=== PATIENT | female | born 1990 | race Two or more races ===

== ENCOUNTER 2018-07-03 12:29 | Emergency (ER) | payer OTHER ==
[~2018-07-03] VITALS: Ht 162.6 cm; Wt 56.7 kg
[2018-07-03 13:08] VITALS: BP 130/60
[2018-07-03] MEDS ORDERED: LIDOCAINE 1% HCL (LOCAL ANESTH.) INJ 20ML MDV ONE (13:49)
[2018-07-03] MEDS ORDERED: cefTRIAXone SOD 1,000 MG VL IM ONE (14:00)
== END 2018-07-03 14:23 | disposition home or self-care (01) ==
LOC: ER 12:39
DX: J20.9 Acute bronchitis, unspecified (principal); H66.93 Otitis media, unspecified, bilateral; J02.9 Acute pharyngitis, unspecified; J45.909 Unspecified asthma, uncomplicated
CPT/HCPCS: 96372; 99283; J0696; J2001

== ENCOUNTER 2020-12-04 10:09 | Emergency (ER) | payer OTHER ==
[~2020-12-04] VITALS: Ht 162.6 cm; Wt 61.2 kg
[2020-12-04 10:11] VITALS: BP 153/88
== END 2020-12-04 12:24 | disposition home or self-care (01) ==
LOC: ER 10:09
DX: G43.909 Migraine, unspecified, not intractable, without status migrainosus (principal); J45.909 Unspecified asthma, uncomplicated
CPT/HCPCS: 70450

== ENCOUNTER 2020-12-30 10:39 | Emergency (ER) | payer OTHER ==
[~2020-12-30] VITALS: Ht 162.6 cm; Wt 79.4 kg
[2020-12-30 11:50] VITALS: BP 139/74
== END 2020-12-30 11:55 | disposition home or self-care (01) ==
LOC: ER 10:39
DX: M67.471 Ganglion, right ankle and foot (principal); Z88.1 Allergy status to other antibiotic agents

== ENCOUNTER 2021-01-10 09:09 | Emergency (ER) | payer OTHER ==
[~2021-01-10] VITALS: Ht 162.6 cm; Wt 56.7 kg
[2021-01-10 09:36] LABS: Basophils # (auto) 0 10 ^3/uL (0-0.2); Basophils % (auto) 0.3 % (0.0-2.0); Eosinophils # (auto) 0.2 10 ^3/uL (0-0.8); Eosinophils % (auto) 2.4 % (0.0-7.0); Hemoglobin 14.5 g/dL (12.2-16.2); Lymphocytes # (auto) 2.1 10 ^3/uL (0.4-5.4); Lymphocytes % (auto) 33.3 % (10.0-50.0); Mean Corpuscular Hemoglobin 30.4 pg (28.0-32.0); Mean Corpuscular Hgb Conc. 34.7 g/dL (32.0-36.0); Mean Corpuscular Volume 87.6 fL (80.0-100.0); Monocytes # (auto) 0.4 10 ^3/uL (0-1.3); Monocytes % (auto) 6.8 % (0.0-12.0); Neutrophils # (auto) 3.6 10 ^3/uL (1.6-8.6); Neutrophils % (auto) 57.2 % (37.0-80.0); Nucleated Red Blood Cells % 0.1 %; Red Blood Cells 4.79 10^6/uL (4.0-5.20); Red Cell Distribution Width 13.9 % (11.8-14.3); White Blood Cell 6.3 10^3/uL (4.4-10.8)
[2021-01-10 09:43] LABS: Urine Bacteria NONE SEEN /hpf (None Seen); Urine Blood 1+ /uL (Negative); Urine Mucus FEW (None Seen); Urine Specific Gravity 1.018 (1.001-1.035); Urine WBC <1 /hpf (0 - 5)
[2021-01-10 09:58] LABS: Albumin 3.5 g/dL (3.4-5.0); Calcium 8.7 mg/dL (8.5-10.1); Potassium 4.2 mmol/L (3.5-5.1)
[2021-01-10 10:03] LABS: BUN/Creatinine Ratio 19.4; Bilirubin, Total 0.5 mg/dL (0.2-1.0); Total Protein 7.5 g/dL (6.4-8.2)
[2021-01-10 15:19] VITALS: BP 119/75
== END 2021-01-10 15:34 | disposition home or self-care (01) ==
LOC: ER 09:09
DX: N93.9 Abnormal uterine and vaginal bleeding, unspecified (principal); J45.909 Unspecified asthma, uncomplicated; Z90.49 Acquired absence of other specified parts of digestive tract; Z90.89 Acquired absence of other organs; Z88.1 Allergy status to other antibiotic agents; Z88.8 Allergy status to other drugs, medicaments and biological substances
CPT/HCPCS: 36415; 76830; 76856; 80053; 81001; 81025; 85025

== ENCOUNTER 2021-03-24 11:32 | Emergency (ER) | payer OTHER ==
[~2021-03-24] VITALS: Ht 160 cm; Wt 63.0 kg
[2021-03-24 13:02] LABS: Basophils # (auto) 0.2 10 ^3/uL (0-0.2); Basophils % (auto) 2.7 % (0.0-2.0); Eosinophils # (auto) 0.1 10 ^3/uL (0-0.8); Eosinophils % (auto) 1.8 % (0.0-7.0); Hematocrit 43.6 % (36.0-46.0); Hemoglobin 14.7 g/dL (12.2-16.2); Lymphocytes # (auto) 1.6 10 ^3/uL (0.4-5.4); Mean Corpuscular Hgb Conc. 33.8 g/dL (32.0-36.0); Mean Corpuscular Volume 88.7 fL (80.0-100.0); Monocytes # (auto) 0.3 10 ^3/uL (0-1.3); Neutrophils # (auto) 4.9 10 ^3/uL (1.6-8.6); Neutrophils % (auto) 69.5 % (37.0-80.0); Nucleated Red Blood Cells % 0.3 %; Red Blood Cells 4.92 10^6/uL (4.0-5.20); Red Cell Distribution Width 13.7 % (11.8-14.3); White Blood Cell 7.1 10^3/uL (4.4-10.8)
[2021-03-24 13:33] LABS: Urine Bacteria NONE SEEN /hpf (None Seen); Urine Blood Negative /uL (Negative); Urine Mucus FEW (None Seen); Urine Specific Gravity 1.022 (1.001-1.035); Urine WBC 6 /hpf (0 - 5)
[2021-03-24 16:13] VITALS: BP 145/90
== END 2021-03-24 17:29 | disposition home or self-care (01) ==
LOC: ER 11:32
DX: O26.891 Other specified pregnancy related conditions, first trimester (principal); N30.00 Acute cystitis without hematuria; O99.511 Diseases of the respiratory system complicating pregnancy, first trimester; J45.909 Unspecified asthma, uncomplicated; Z90.49 Acquired absence of other specified parts of digestive tract; Z90.89 Acquired absence of other organs; Z88.1 Allergy status to other antibiotic agents; Z88.8 Allergy status to other drugs, medicaments and biological substances; Z3A.00 Weeks of gestation of pregnancy not specified
CPT/HCPCS: 36415; 81001; 84702; 85025

== ENCOUNTER 2021-03-26 09:26 | Emergency (ER) | payer OTHER ==
[~2021-03-26] VITALS: Ht 160 cm; Wt 63.5 kg
[2021-03-26 09:53] VITALS: BP 131/80
[2021-03-26 10:01] LABS: Urine Bacteria FEW /hpf (None Seen); Urine Blood Negative /uL (Negative); Urine Mucus FEW (None Seen); Urine Specific Gravity 1.031 (1.001-1.035); Urine WBC 27 /hpf (0 - 5)
== END 2021-03-26 11:33 | disposition home or self-care (01) ==
LOC: ER 09:26
DX: O23.11 Infections of bladder in pregnancy, first trimester (principal); N30.00 Acute cystitis without hematuria; O99.511 Diseases of the respiratory system complicating pregnancy, first trimester; J45.909 Unspecified asthma, uncomplicated; Z90.49 Acquired absence of other specified parts of digestive tract; Z90.89 Acquired absence of other organs; Z88.1 Allergy status to other antibiotic agents; Z88.8 Allergy status to other drugs, medicaments and biological substances; Z3A.00 Weeks of gestation of pregnancy not specified
CPT/HCPCS: 36415; 81001; 84702

== ENCOUNTER 2021-03-31 07:42 | Emergency (ER) | payer OTHER ==
[~2021-03-31] VITALS: Ht 162.6 cm; Wt 63.0 kg
[2021-03-31 08:15] LABS: Urine Bacteria FEW /hpf (None Seen); Urine Blood Negative /uL (Negative); Urine Mucus FEW (None Seen); Urine Specific Gravity 1.022 (1.001-1.035); Urine WBC 4 /hpf (0 - 5)
[2021-03-31 08:29] LABS: Basophils # (auto) 0 10 ^3/uL (0-0.2); Basophils % (auto) 0.4 % (0.0-2.0); Eosinophils # (auto) 0.1 10 ^3/uL (0-0.8); Eosinophils % (auto) 1.5 % (0.0-7.0); Hematocrit 42.7 % (36.0-46.0); Lymphocytes # (auto) 1.7 10 ^3/uL (0.4-5.4); Lymphocytes % (auto) 27.8 % (10.0-50.0); Mean Corpuscular Hemoglobin 30.9 pg (28.0-32.0); Mean Corpuscular Hgb Conc. 35.2 g/dL (32.0-36.0); Mean Corpuscular Volume 87.8 fL (80.0-100.0); Monocytes # (auto) 0.4 10 ^3/uL (0-1.3); Monocytes % (auto) 5.7 % (0.0-12.0); Neutrophils % (auto) 64.6 % (37.0-80.0); Nucleated Red Blood Cells % 0.1 %; Red Blood Cells 4.86 10^6/uL (4.0-5.20); Red Cell Distribution Width 13.6 % (11.8-14.3); White Blood Cell 6.2 10^3/uL (4.4-10.8)
[2021-03-31 08:32] LABS: Albumin 3.8 g/dL (3.4-5.0); Calcium 8.8 mg/dL (8.5-10.1); Potassium 4.6 mmol/L (3.5-5.1)
[2021-03-31 08:35] LABS: BUN/Creatinine Ratio 13.8; Bilirubin, Total 0.5 mg/dL (0.2-1.0); Total Protein 7.6 g/dL (6.4-8.2)
[2021-03-31 10:55] VITALS: BP 120/72
== END 2021-03-31 11:02 | disposition home or self-care (01) ==
LOC: ER 07:42
DX: O23.41 Unspecified infection of urinary tract in pregnancy, first trimester (principal); N39.0 Urinary tract infection, site not specified; Z88.1 Allergy status to other antibiotic agents; Z3A.01 Less than 8 weeks gestation of pregnancy
CPT/HCPCS: 36415; 76801; 76817; 80053; 81001; 84702; 85025

== ENCOUNTER 2022-09-30 10:13 | Observation (INO) | payer OTHER ==
[~2022-09-30] VITALS: Ht 165.1 cm; Wt 70.6 kg
[2022-09-30 10:27] VITALS: BP 142/67
[2022-09-30 10:55] LABS: Basophils # (auto) 0 10 ^3/uL (0-0.2); Basophils % (auto) 0.3 % (0.0-2.0); Eosinophils # (auto) 0.1 10 ^3/uL (0-0.8); Hematocrit 38.1 % (36.0-46.0); Hemoglobin 12.7 g/dL (12.2-16.2); Lymphocytes # (auto) 1.9 10 ^3/uL (0.4-5.4); Lymphocytes % (auto) 16.8 % (10.0-50.0); Mean Corpuscular Hemoglobin 30.2 pg (28.0-32.0); Mean Corpuscular Hgb Conc. 33.4 g/dL (32.0-36.0); Mean Corpuscular Volume 90.5 fL (80.0-100.0); Monocytes # (auto) 0.7 10 ^3/uL (0-1.3); Monocytes % (auto) 6.3 % (0.0-12.0); Neutrophils # (auto) 8.6 10 ^3/uL (1.6-8.6); Neutrophils % (auto) 75.6 % (37.0-80.0); Red Blood Cells 4.21 10^6/uL (4.0-5.20); Red Cell Distribution Width 14.3 % (11.8-14.3); White Blood Cell 11.4 10^3/uL (4.4-10.8)
[2022-09-30 11:14] LABS: Albumin 2.7 g/dL (3.4-5.0); Calcium 9.4 mg/dL (8.5-10.1); Potassium 4.2 mmol/L (3.5-5.1)
[2022-09-30 11:17] LABS: BUN/Creatinine Ratio 15.8 (10.0-20.0); Bilirubin, Total 0.3 mg/dL (0.2-1.0); Total Protein 6.3 g/dL (6.4-8.2)
[2022-09-30 11:22] LABS: Urine Bacteria NONE SEEN /hpf (None Seen); Urine Blood Negative /uL (Negative); Urine Mucus FEW (None Seen); Urine Specific Gravity 1.025 (1.001-1.035); Urine WBC 12 /hpf (0 - 5)
[2022-09-30] MEDS ORDERED: PREN-96 PO (12:08)
[2022-09-30] MEDS ORDERED: NITR-87 PO (12:30)
== END 2022-09-30 12:42 | disposition home or self-care (01) ==
LOC: ER 10:13 → LDRP 11:18
PROVIDERS: ADMIT Obstetrics & Gynecology; ATTEND Obstetrics & Gynecology
DX: O62.9 Abnormality of forces of labor, unspecified (principal); O23.12 Infections of bladder in pregnancy, second trimester; R10.2 Pelvic and perineal pain; N30.00 Acute cystitis without hematuria; O99.342 Other mental disorders complicating pregnancy, second trimester; F41.9 Anxiety disorder, unspecified; Z3A.21 21 weeks gestation of pregnancy; Z79.899 Other long term (current) drug therapy
CPT/HCPCS: 36415; 59025; 80053; 81001; 81002; 84702; 85025; 99284; G0378

== ENCOUNTER 2023-10-08 10:08 | Emergency (ER) | payer MEDICAID, OTHER ==
[~2023-10-08] VITALS: Ht 162.6 cm; Wt 58.0 kg
[~2023-10-08 10:08] MED LIST: NITR-87 PO; PREN-96 PO
[2023-10-08 10:56] LABS: Urine Bacteria None Seen /hpf (None Seen)
[2023-10-08 11:15] LABS: Basophils # (auto) 0.1 10 ^3/uL (0-0.2); Basophils % (auto) 0.8 % (0.0-2.0); Eosinophils # (auto) 0.2 10 ^3/uL (0-0.8); Hematocrit 42.9 % (36.0-46.0); Hemoglobin 14.4 g/dL (12.2-16.2); Lymphocytes # (auto) 2.1 10 ^3/uL (0.4-5.4); Lymphocytes % (auto) 26.3 % (10.0-50.0); Mean Corpuscular Hemoglobin 28.7 pg (28.0-32.0); Mean Corpuscular Hgb Conc. 33.6 g/dL (32.0-36.0); Mean Corpuscular Volume 85.3 fL (80.0-100.0); Monocytes # (auto) 0.4 10 ^3/uL (0-1.3); Monocytes % (auto) 5.3 % (0.0-12.0); Neutrophils # (auto) 5.3 10 ^3/uL (1.6-8.6); Neutrophils % (auto) 65.6 % (37.0-80.0); Nucleated Red Blood Cells % 0.2 %; Red Blood Cells 5.04 10^6/uL (4.0-5.20); Red Cell Distribution Width 14.1 % (11.8-14.3); White Blood Cell 8.1 10^3/uL (4.4-10.8)
[2023-10-08 12:38] LABS: Urine Blood 3+ /uL (Negative); Urine Clarity Clear (Clear); Urine Color Yellow (Yellow); Urine Mucus FEW (None Seen); Urine Protein, UAD TRACE (Negative); Urine Specific Gravity 1.028 (1.001-1.035); Urine Urobilinogen Normal (Negative); Urine WBC 6 /hpf (0 - 5); Urine pH 5.5 (5.0-9.0)
[2023-10-08 14:14] VITALS: BP 150/66; O2SAT 95
[2023-10-08 14:15] VITALS: PULSE 86; RESP 16
== END 2023-10-08 14:16 | disposition home or self-care (01) ==
LOC: ER 10:08
DX: N93.8 Other specified abnormal uterine and vaginal bleeding (principal); R10.2 Pelvic and perineal pain; J45.909 Unspecified asthma, uncomplicated; Z88.6 Allergy status to analgesic agent; Z88.1 Allergy status to other antibiotic agents
CPT/HCPCS: 36415; 81001; 84702; 85025; 86850; 86900; 86901

== ENCOUNTER 2023-11-16 15:16 | Emergency (ER) | payer MEDICAID ==
[~2023-11-16] VITALS: Ht 162.6 cm; Wt 65.4 kg
[2023-11-16 15:31] VITALS: BP 167/87; PULSE 83; RESP 16; O2SAT 98
[2023-11-16 16:31] LABS: Urine Bacteria FEW /hpf (None Seen); Urine Blood Negative /uL (Negative); Urine Clarity Clear (Clear); Urine Color Light-Yellow (Yellow); Urine Mucus FEW (None Seen); Urine Protein, UAD Negative (Negative); Urine Specific Gravity 1.025 (1.001-1.035); Urine Urobilinogen Normal (Negative); Urine WBC 1 /hpf (0 - 5); Urine pH 5.5 (5.0-9.0)
[2023-11-16 16:35] LABS: Basophils # (auto) 0 10 ^3/uL (0-0.2); Basophils % (auto) 0.2 % (0.0-2.0); Eosinophils # (auto) 0.1 10 ^3/uL (0-0.8); Eosinophils % (auto) 1.1 % (0.0-7.0); Hematocrit 40.3 % (36.0-46.0); Hemoglobin 13.7 g/dL (12.2-16.2); Lymphocytes # (auto) 2.4 10 ^3/uL (0.4-5.4); Lymphocytes % (auto) 24.8 % (10.0-50.0); Mean Corpuscular Hemoglobin 28.9 pg (28.0-32.0); Mean Corpuscular Hgb Conc. 33.9 g/dL (32.0-36.0); Mean Corpuscular Volume 85.2 fL (80.0-100.0); Monocytes # (auto) 0.5 10 ^3/uL (0-1.3); Monocytes % (auto) 5.1 % (0.0-12.0); Neutrophils # (auto) 6.7 10 ^3/uL (1.6-8.6); Neutrophils % (auto) 68.8 % (37.0-80.0); Red Blood Cells 4.73 10^6/uL (4.0-5.20); Red Cell Distribution Width 14.7 % (11.8-14.3); White Blood Cell 9.7 10^3/uL (4.4-10.8)
== END 2023-11-16 23:14 | disposition home or self-care (01) ==
LOC: ER 15:16
DX: O26.891 Other specified pregnancy related conditions, first trimester (principal); R10.2 Pelvic and perineal pain; Z88.1 Allergy status to other antibiotic agents; Z3A.01 Less than 8 weeks gestation of pregnancy
CPT/HCPCS: 36415; 76801; 76817; 81001; 84702; 85025

== ENCOUNTER 2024-03-25 11:55 | Emergency (ER) | payer MEDICAID ==
[~2024-03-25] VITALS: Ht 160 cm; Wt 66.4 kg
[2024-03-25 13:09] LABS: COVID19 ANTIGEN SOFIA FIA POSITIVE (NEGATIVE)
[2024-03-25 13:40] LABS: Basophils # (auto) 0 10 ^3/uL (0-0.2); Basophils % (auto) 0.3 % (0.0-2.0); Eosinophils # (auto) 0.1 10 ^3/uL (0-0.8); Eosinophils % (auto) 1.1 % (0.0-7.0); Hematocrit 38.8 % (36.0-46.0); Hemoglobin 13.2 g/dL (12.2-16.2); Lymphocytes # (auto) 1.5 10 ^3/uL (0.4-5.4); Lymphocytes % (auto) 14.9 % (10.0-50.0); Mean Corpuscular Hemoglobin 30.5 pg (28.0-32.0); Mean Corpuscular Volume 89.7 fL (80.0-100.0); Monocytes # (auto) 0.9 10 ^3/uL (0-1.3); Monocytes % (auto) 8.8 % (0.0-12.0); Neutrophils # (auto) 7.3 10 ^3/uL (1.6-8.6); Neutrophils % (auto) 74.9 % (37.0-80.0); Platelet Count (auto) 190 10^3/uL (140-450); Red Blood Cells 4.32 10^6/uL (4.0-5.20); Red Cell Distribution Width 13.6 % (11.8-14.3); White Blood Cell 9.8 10^3/uL (4.4-10.8)
[2024-03-25 13:43] LABS: Chloride 108 mmol/L (98-107); Sodium 139 mmol/L (136-145)
[2024-03-25 13:44] LABS: Anion Gap 7 (5-15); Carbon Dioxide 24 mmol/L (20-31)
[2024-03-25 13:45] LABS: Calcium 9.2 mg/dL (8.7-10.4)
[2024-03-25 13:49] LABS: BUN/Creatinine Ratio 14.3 (10.0-20.0); Blood Urea Nitrogen 11 mg/dL (9-23); Glucose 99 mg/dL (74-106)
[2024-03-25 14:27] LABS: Urine Bacteria FEW /hpf (None Seen); Urine Blood Negative /uL (Negative); Urine Clarity Turbid (Clear); Urine Color Yellow (Yellow); Urine Mucus FEW (None Seen); Urine Protein, UAD TRACE (Negative); Urine Urobilinogen Normal (Negative); Urine WBC 8 /hpf (0 - 5)
[2024-03-25 14:57] VITALS: BP 112/61; PULSE 93; RESP 16; TEMP 97.7; O2SAT 99
== END 2024-03-25 14:58 | disposition home or self-care (01) ==
LOC: ER 12:03
DX: O99.512 Diseases of the respiratory system complicating pregnancy, second trimester (principal); R10.2 Pelvic and perineal pain; O36.8320 Maternal care for abnormalities of the fetal heart rate or rhythm, second trimester, not applicable or unspecified; U07.1 COVID-19; J45.909 Unspecified asthma, uncomplicated; Z3A.23 23 weeks gestation of pregnancy; Z90.49 Acquired absence of other specified parts of digestive tract; Z90.89 Acquired absence of other organs
CPT/HCPCS: 36415; 76805; 80048; 81001; 84702; 85025; 87426

== ENCOUNTER 2024-08-03 09:36 | Emergency (ER) | payer MEDICAID ==
[~2024-08-03] VITALS: Ht 160 cm; Wt 72.6 kg
--- NOTE | 2024-08-03 10:47 | ED.PDOC ---
Eye-HPI HPI Comments 33 y.o female presents to the ED for an evaluation of a right sided neck mass for unknown amount of time. Patient reports noticing lump yesterday and also mentions having a 9 pound weight gain the past 2 days. Patient was diagnosed with hyperthyroidism back in 2014, was taking medication then she got , was told she developed hypothyroid and was taken off the medication. Patient states no medication or intervention for her thyroid at this time. Patient also reports having right-sided ear pain. Patient also reports giving 3 months ago and since has not gotten her men strual cycle and has had a constant right sided ear pain x2 months in which she visited the hospital for but never had an ear exam performed. Patient was seen at this ED for Covid infection back in 4 months ago. Additional medical history includes anxiety, tics, technical operations manager hx. Chief Complaint: Neck Pain Time Seen by MD: 10:14 Primary Care Provider: GILMER Reviewed Notes: Nurses Notes, Medications Allergies: Coded Allergies: Amoxicillin (Verified Allergy, Severe, 07/03/18) Cephalexin (Verified Allergy, Unknown, 03/25/24) Furosemide (Verified Allergy, Unknown, 12/30/20) Ibuprofen (Verified Allergy, Unknown, 03/25/24) Penicillins (Verified Allergy, Unknown, 03/25/24) Home Meds Active Scripts Azithromycin (Zithromax Z-[place]) 250 Mg Tab, 250 MG PO DAILY for 5 Days, #6 TAB 2 tabs po on day 1, then 1 tab daily x 4 days. Prov:FOREST SCOTT MD 08/03/24 Reported Medications Nitrofurantoin Monohydrate Mac (Macrobid) 100 Mg Cap, 100 MG PO BID for 7 Days, CAP 09/30/22 Vit W/ Ferrous Fumara ( One Daily) Daily Tab, 1 TAB PO DAILY, #90 TAB 3 Refills 09/30/22 Information Source: Patient Mode of Arrival: Ambulatory Timing: Came on: Gradually Duration: Since onset Quality: Pain Onset: Spontaneous Throat Exposed to: None Associated signs and symptoms: Ear Pain Past Medical History PAST MEDICAL HISTORY: Asthma, Thyroid Surgical History: Appendectomy, , Tonsillectomy APPLIED MATHEMATICIAN History: Denies all APPLIED MATHEMATICIAN Hx Family History Family History: Reviewed,noncontributory to illness, Family hx of DM Social History Smoker: Non-Smoker Alcohol: Denies ETOH Use Drugs: Denies Drug Use Lives In: Home Constitutional: denies: chills, diaphoresis, fatigue, fever, malaise, sweats, weakness, others EENTM: reports: eye pain (right ); denies: blurred vision, double vision, ear bleeding, ear discharge, ear drainage, ear pain, ear ringing, eye redness, hearing loss, mouth pain, mouth swelling, nasal discharge, nose bleeding, nose congestion, nose pain, photophobia, tearing, throat pain, throat swelling, voice changes, others Respiratory: denies: cough, hemoptysis, orthopnea, SOB at rest, shortness of breath, SOB with excertion, stridor, wheezing, others Cardiovascular: denies: chest pain, dizzy spells, diaphoresis, Dyspnea on exertion, edema, irregular heart beat, left arm pain, lightheadedness, palpitations, PND, syncope, others Gastrointestinal: denies: abdomen distended, abdominal pain, blood streaked bowels, constipated, diarrhea, dysphagia, difficulty swallowing, hematemesis, melena, nausea, poor appetite, poor fluid intake, rectal bleeding, rectal pain, vomiting, others Genitourinary: denies: abnormal vagina bleeding, burning, dyspareunia, dysuria, flank pain, frequency, hematuria, incontinence, pain, , vagina discharge, urgency, others Neurological: denies: dizziness, fainting, headache, left sided numbness, left sided weakness, numbness, paresthesia, pre-existing deficit, right sided numbness, right sided weakness, seizure, speech problems, tingling, tremors, weakness, others Musculoskeletal: denies: back pain, gout, joint pain, joint swelling, muscle pain, muscle stiffness, neck pain, others Integumetry: reports: others (right sided swelling mass ); denies: bruises, change in color, change in hair/nails, dryness, laceration, lesions, lumps, rash, wounds Allergic/Immunocompromised: denies: Difficulty Healing, Frequent Infections, Hives, Itching, others Hematologic/Lymphatic: denies: anemia, blood clots, easy bleeding, easy bruising, swollen glands, others Endocrine: denies: excessive hunger, excessive sweating, excessive thirst, excessive urination, flushing, intolerance to cold, intolerance to heat, unexplained weight gain, unexplained weight loss, others Psychiatric: denies: anxiety, bipolar disorder, depression, hopeless, panic disorder, schizophrenia, sleepless, suicidal, others All Other Systems: Reviewed and Negative Physical Exam General Appearance: No Apparent Distress HEENT: TM Abnormal (R) (Right TM opacified and slightly bulging), Other (Vitals EN face symmetric, moist mucous membranes) Neck: Full Range of Motion, Non-Tender, Supple, Other (Right anterior lateral neck soft tissue prominence and palpable possibly enlarged nontender adjacent ly mph node. No tenderness or discoloration. No fluctuance.) Respiratory: Chest Non-Tender, Lungs Clear, No Accessory Muscle Use, No Respiratory Distress, Normal Breath Sounds Cardiovascular: No Edema, No JVD, Regular Rate/Rhythm Breast Exam: Deferred Gastrointestinal: Non Tender, Soft Genitalia: Deferred Pelvic: Deferred Rectal: Deferred Extremities: Normal inspection, Normal range of motion, Non-tender, No pedal edema Neurologic: Alert (Oriented x4), Normal Affect, Normal Mood, Other (Ambulatory without difficulty. No gross focal deficit.) Cerebellar Function: NOT DONE Reflexes: NOT DONE Skin: Dry, Normal Color, Warm Lymphatic: NOT DONE Was a procedure done? Was a procedure done?: No EENT DIFF Eye: N/A Ear: Otitis Externa, Otitis Media, Perforation Other Differential Diagnosis Thyroid disease, soft tissue mass, lymphadenopathy, among others X-Ray, Labs, Meds, VS Vital Signs Date Time Temp Pulse Resp B/P (MAP) Pulse Ox O2 Delivery O2 Flow Rate FiO2 08/03/24 16:31 98.3 84 16 124/69 (87) 97 98.3 08/03/24 09:50 97.3 85 16 143/95 (111) 97 Lab Test 08/03/24 10:42 Range/Units White Blood Count 8.6 4.4-10.8 10^3/uL Red Blood Count 5.40 H 4.0-5.20 10^6/uL Hemoglobin 15.3 12.2-16.2 g/dL Hematocrit 46.6 H 36.0-46.0 % Mean Corpuscular Volume 86.3 80.0-100.0 fL Mean Corpuscular Hemoglobin 28.4 28.0-32.0 pg Mean Corpuscular Hemoglobin Concent 32.9 32.0-36.0 g/dL Red Cell Distribution Width 15.5 H 11.8-14.3 % Platelet Count 252 140-450 10^3/uL Mean Platelet Volume 8.1 6.9-10.8 fL Neutrophils (%) (Auto) 61.5 37.0-80.0 % Lymphocytes (%) (Auto) 30.0 10.0-50.0 % Monocytes (%) (Auto) 5.9 0.0-12.0 % Eosinophils (%) (Auto) 2.1 0.0-7.0 % Basophils (%) (Auto) 0.5 0.0-2.0 % Neutrophils # (Auto) 5.3 1.6-8.6 10 ^3/uL Lymphocytes # (Auto) 2.6 0.4-5.4 10 ^3/uL Monocytes # (Auto) 0.5 0-1.3 10 ^3/uL Eosinophils # (Auto) 0.2 0-0.8 10 ^3/uL Basophils # (Auto) 0 0-0.2 10 ^3/uL Nucleated Red Blood Cells 0.1 % Sodium Level 137 136-145 mmol/L Potassium Level 4.3 3.5-5.1 mmol/L Chloride Level 105 98-107 mmol/L Carbon Dioxide Level 24 20-31 mmol/L Anion Gap 8 5-15 Blood Urea Nitrogen 9 9-23 mg/dL Creatinine 0.80 0.550-1.02 mg/dL Glomerular Filtration Rate Calc 101 >90 mL/min BUN/Creatinine Ratio 11.3 10.0-20.0 Serum Glucose 94 74-106 mg/dL Calcium Level 10.0 8.7-10.4 mg/dL Free Thyroxine Index Pending Thyroxine (T4) Pending Triiodothyronine (T3) Uptake Pending Beta HCG, Quantitative 0.4 L 1.5-4.2 mIU/mL [address] [address] Ph: [phone] DIAGNOSTIC IMAGING Diagnostic Imaging Report : [id number] Signed PATIENT: XIOMARA JAMEST: [id number] UNIT: [id number] : 1990 LOC: ER ROOM / BED: / AGE / SEX: 33 / F ADM STATUS: REG ER SERVICE 1023 ORDERING PHYSICIAN: FOREST SCOTT MD PROCEDURE(s): NKICT - NECK WITHOUT CONTRAST REASON: R neck mass ORDER NUMBER(s): [id number], ACCESSION NUMBER(s): [id number] EXAM: CT NECK WITHOUT CONTRAST INDICATION: R neck mass Exam Date: 08/03/2024 12:02 PM COMPARISON: None TECHNIQUE: CT of the neck without intravenous contrast. RADIATION DOSE: CTDIvol: 23.84 mGy, DLP: 596.11 mGy*cm FINDINGS: There is no evidence of cervical mass lesion, pathologically enlarged lymph nodes or fluid collection. The fat planes of the neck appear intact. The airway and larynx are unremarkable. The parotid, submandibular and thyroid glands are unremarkable. The visualized lung apices are clear. The limited visualized portions of the brain are unremarkable. The osseous structures are unremarkable. IMPRESSION: No mass lesions are identified, although evaluation is limited without intravenous contrast. If there is still clinical concern, may consider contrast-enhanced CT or targeted soft tissue ultrasound. ATED BY: MK CALI DO DICTATED DATE/TIME: 08/03/241314 SIGNED BY: MK CALI DO SIGNED DATE/TIME: 08/03/241314 CC: X-Ray, Labs, Meds, VS Comment 33-year-old female with a history of my and thyroid disease complaining of right sided neck swelling and right ear pain Vitals remarkable for BP 143/95 Exam remarkable for Right anterior lateral neck soft tissue prominence and palpable possibly enlarged nontender adjacent lymph node. No tenderness or discoloration. No fluctuance. Right TM opacified and slightly bulging. Rhythm strip independently interpreted by me: Sinus rhythm, rate 85, no ectopy. CT neck soft tissue IMPRESSION: No mass lesions are identified, although evaluation is limited without intravenous contrast. If there is still clinical concern, may consider contrast-enhanced CT or targeted soft tissue ultrasound. CBC and metabolic panel unremarkable Thyroid panel performed on the weekends, so patient was advised she must follow- up with her primary physician for thyroid testing. On re-evaluation, exam is unchanged and patient states she is pain-free. She appears stable for discharge with close outpatient follow-up with her primary doctor. I will prescribe antibiotics for treatment of otitis media. The right neck soft tissue prominence may be due to cervical chain lymphadenopathy. Rx Zithromax Time of 1ST Reevaluation: 10:37 Reevaluation 1ST: Unchanged Patient Education/Counseling: Diagnosis, Treatment, Prognosis Family Education/Counseling: No Family Present Departure 1 Departure Time of Disposition: 17:13 Impression: Primary Impression: Right otitis media Qualified Codes: H66.91 - Otitis media, unspecified, right ear Disposition: HOME / SELF CARE / HOMELESS Condition: Stable Additional Instructions: Your blood tests were unremarkable. Lab is not able to perform thyroid testing today. You will need to follow-up with your primary doctor for thyroid function testing. Your CT scan was unremarkable. I have prescribed antibiotics for an ear infection. Follow-up with your primary doctor in 1-2 days. e-Prescriptions Azithromycin (Zithromax Z-[place]) 250 Mg Tab 250 MG PO DAILY for 5 Days, #6 TAB 2 tabs po on day 1, then 1 tab daily x 4 days. Prov: FOREST SCOTT MD 08/03/24 Discharged With: Self Critical Care Note Critical Care Time?: No Stability Stability form required: No Heart Score Heart Score: Heart Score Response (Comments) Value History N/A 0 EKG N/A 0 Age N/A 0 Risk Factors N/A 0 Troponin N/A 0 Total 0 I personally scribed for FOREST SCOTT MD ([email or web address]) on 08/03/24 at 10:47. Electronically submitted by Christy Santiago ([facility]). I personally scribed for FOREST SCOTT MD ([email or web address]) on 08/03/24 at 13:19. Electronically submitted by Christy Santiago ([facility]). FOREST SCOTT MD Aug 03, 2024 10:47
[2024-08-03 11:14] LABS: Basophils # (auto) 0 10 ^3/uL (0-0.2); Basophils % (auto) 0.5 % (0.0-2.0); Eosinophils # (auto) 0.2 10 ^3/uL (0-0.8); Eosinophils % (auto) 2.1 % (0.0-7.0); Hematocrit 46.6 % (36.0-46.0); Hemoglobin 15.3 g/dL (12.2-16.2); Lymphocytes # (auto) 2.6 10 ^3/uL (0.4-5.4); Mean Corpuscular Hemoglobin 28.4 pg (28.0-32.0); Mean Corpuscular Hgb Conc. 32.9 g/dL (32.0-36.0); Mean Corpuscular Volume 86.3 fL (80.0-100.0); Monocytes # (auto) 0.5 10 ^3/uL (0-1.3); Monocytes % (auto) 5.9 % (0.0-12.0); Neutrophils # (auto) 5.3 10 ^3/uL (1.6-8.6); Neutrophils % (auto) 61.5 % (37.0-80.0); Nucleated Red Blood Cells % 0.1 %; Platelet Count (auto) 252 10^3/uL (140-450); Red Cell Distribution Width 15.5 % (11.8-14.3); White Blood Cell 8.6 10^3/uL (4.4-10.8)
[2024-08-03 11:19] LABS: Chloride 105 mmol/L (98-107); Potassium 4.3 mmol/L (3.5-5.1); Sodium 137 mmol/L (136-145)
[2024-08-03 11:20] LABS: Anion Gap 8 (5-15); Carbon Dioxide 24 mmol/L (20-31)
[2024-08-03 11:25] LABS: BUN/Creatinine Ratio 11.3 (10.0-20.0); Blood Urea Nitrogen 9 mg/dL (9-23); Glucose 94 mg/dL (74-106)
--- NOTE | 2024-08-03 13:17 | DVH ---
EXAM: CT NECK WITHOUT CONTRAST INDICATION: R neck mass Exam Date: 08/03/2024 12:02 PM COMPARISON: None TECHNIQUE: CT of the neck without intravenous contrast. RADIATION DOSE: CTDIvol: 23.84 mGy, DLP: 596.11 mGy*cm FINDINGS: There is no evidence of cervical mass lesion, pathologically enlarged lymph nodes or fluid collection . The fat planes of the neck appear intact. The airway and larynx are unremarkable. The parotid, submandibular and thyroid glands are unremarkable. The visualized lung apices are clear. The limited visualized portions of the brain are unremarkable. The osseous structures are unremarkable. IMPRESSION: No mass lesions are identified, although evaluation is limited without intravenous contrast. If there is still clinical concern, may consider contrast-enhanced CT or targeted soft tissue ultrasound.
[2024-08-03] MEDS ORDERED: AZITTAB PO (15:44)
[2024-08-03 16:31] VITALS: BP 124/69; PULSE 84; RESP 16; TEMP 98.3; O2SAT 97
[2024-08-05 10:07] LABS: Free Thyroxine Index 2.2 (1.2-4.9); Thyroxine (T4) 8.9 ug/dL (4.5-12.0)
== END 2024-08-03 18:18 | disposition home or self-care (01) ==
LOC: ER 09:36
DX: H66.91 Otitis media, unspecified, right ear (principal); J45.909 Unspecified asthma, uncomplicated; E03.9 Hypothyroidism, unspecified; R10.2 Pelvic and perineal pain; Z90.89 Acquired absence of other organs; Z90.49 Acquired absence of other specified parts of digestive tract; Z88.0 Allergy status to penicillin; Z88.1 Allergy status to other antibiotic agents; Z88.6 Allergy status to analgesic agent; Z88.8 Allergy status to other drugs, medicaments and biological substances
CPT/HCPCS: 36415; 70490; 80048; 84443; 84702; 85025

== ENCOUNTER 2024-08-15 17:41 | Inpatient (IN) | payer MEDICAID ==
[~2024-08-15] VITALS: Ht 162.6 cm; Wt 73.0 kg
[~2024-08-15 17:41] MED LIST changes: +AZITTAB PO
[2024-08-15 19:13] LABS: Basophils # (auto) 0.1 10 ^3/uL (0-0.2); Basophils % (auto) 0.7 % (0.0-2.0); Eosinophils # (auto) 0 10 ^3/uL (0-0.8); Eosinophils % (auto) 0.2 % (0.0-7.0); Hematocrit 47.9 % (36.0-46.0); Hemoglobin 16.4 g/dL (12.2-16.2); Lymphocytes # (auto) 0.3 10 ^3/uL (0.4-5.4); Lymphocytes % (auto) 3.6 % (10.0-50.0); Mean Corpuscular Hemoglobin 29.8 pg (28.0-32.0); Mean Corpuscular Hgb Conc. 34.2 g/dL (32.0-36.0); Mean Corpuscular Volume 87.3 fL (80.0-100.0); Monocytes # (auto) 0.3 10 ^3/uL (0-1.3); Monocytes % (auto) 2.8 % (0.0-12.0); Neutrophils % (auto) 92.7 % (37.0-80.0); Nucleated Red Blood Cells % 0.1 %; Platelet Count (auto) 240 10^3/uL (140-450); Red Blood Cells 5.49 10^6/uL (4.0-5.20); Red Cell Distribution Width 14.9 % (11.8-14.3); White Blood Cell 9.7 10^3/uL (4.4-10.8)
--- NOTE | 2024-08-15 19:32 | ED.PDOC ---
GI ASSESSMENT HPI Comments 33-year-old female with a history of asthma and thyroid disease brought in by family complaining of epigastric pain, nausea and vomiting for the past 24 hours. Patient states the pain is sharp, constant and radiates to the right upper quadrant. She also notes a rapid heart rate chest discomfort and subjective fever. She denies diarrhea or dysuria. Chief Complaint: Palpitations Time Seen by MD: 18:30 Primary Care Provider: GILMER Reviewed Notes: Nurses Notes, Medications, Allergies Allergies: Coded Allergies: Amoxicillin (Verified Allergy, Severe, 07/03/18) Cephalexin (Verified Allergy, Unknown, 03/25/24) Furosemide (Verified Allergy, Unknown, 12/30/20) Ibuprofen (Verified Allergy, Unknown, 03/25/24) Latex (Verified Allergy, Unknown, 08/15/24) Penicillins (Verified Allergy, Unknown, 03/25/24) Home Meds Active Scripts Azithromycin (Zithromax Z-[place]) 250 Mg Tab, 250 MG PO DAILY for 5 Days, #6 TAB 2 tabs po on day 1, then 1 tab daily x 4 days. Prov:FOREST SCOTT MD 08/03/24 Reported Medications Nitrofurantoin Monohydrate Mac (Macrobid) 100 Mg Cap, 100 MG PO BID for 7 Days, CAP 09/30/22 Vit W/ Ferrous Fumara ( One Daily) Daily Tab, 1 TAB PO DAILY, #90 TAB 3 Refills 09/30/22 Information Source: Patient Mode of Arrival: Ambulatory Timing: Hours Duration: Since onset, Hours Prehospital treatment: None Quality: Aching Vomitus: Bilious Stool: Normal Severity: Moderate Recent: None Recent Hx of: None Pain Location: Epigastric Associated sign and symptoms: Nausea, Vomiting, Abdominal Pain Past Medical History PAST MEDICAL HISTORY: Anxiety, Asthma, Thyroid Surgical History: Unknown CASE COORDINATOR History: Denies all CASE COORDINATOR Hx Family History Family History: Reviewed,noncontributory to illness, Unknown Social History Smoker: Non-Smoker Alcohol: Denies ETOH Use Drugs: Denies Drug Use Lives In: Home All Other Systems: Reviewed and Negative (Comprehensive systems review obtained and negative except for what is stated in the HPI) Physical Exam General Appearance: Mild Distress HEENT: PERRL/EOMI, Other (Dry mucous membranes) Neck: Full Range of Motion, Normal Inspection Respiratory: Lungs Clear, No Accessory Muscle Use, No Respiratory Distress, N ormal Breath Sounds Cardiovascular: No Edema, No JVD, Tachycardia Breast Exam: Deferred Gastrointestinal: Epigastric, LUQ, RUQ, Soft, Tenderness Genitalia: Deferred Pelvic: Deferred Rectal: Deferred Extremities: Normal inspection, Normal range of motion, Non-tender, No pedal edema Musculoskeletal : Apperance: Normal Neurologic: Alert (Oriented x4), Normal Affect, Normal Mood, Other (Ambulatory. No gross focal deficit.) Cerebellar Function: NOT DONE Reflexes: NOT DONE Skin: Dry, Normal Color, Warm Lymphatic: NOT DONE EKG EKG : Comments Sinus tach, rate 126, normal intervals, left axis deviation, possible incomplete right bundle-branch block, nonspecific T changes. Was a procedure done? Was a procedure done?: No GI differential Dx Differential Diagnosis: Cholangitis, Cholecystitis, Constipation, Diverticular disease, Gastritis/PUD, Gastroenteritis, Hepatitis, Inflammatory BD, Ischemic Bowel, Pancreatitis, UTI, Dehydration, Diabetes/ DKA, Electrolyte Imbalance, Food Poisoning, , Bacterial, Viral, Hypovolemia, Renal Failure, Stress Ulcer X-Ray, Labs, Meds, VS Vital Signs Date Time Temp Pulse Resp B/P (MAP) Pulse Ox O2 Delivery O2 Flow Rate FiO2 08/15/24 19:39 97.6 136 17 139/60 (86) 97 97.6 08/15/24 19:39 136 17 97 Room Air* 0 21 08/15/24 17:49 126 08/15/24 17:42 99.3 129 20 145/80 (101) 98 Lab Test 08/15/24 19:59 08/15/24 18:50 Range/Units Troponin I High Sensitivity < 3 L < 3 L </=34 ng/L White Blood Count 9.7 4.4-10.8 10^3/uL Red Blood Count 5.49 H 4.0-5.20 10^6/uL Hemoglobin 16.4 H 12.2-16.2 g/dL Hematocrit 47.9 H 36.0-46.0 % Mean Corpuscular Volume 87.3 80.0-100.0 fL Mean Corpuscular Hemoglobin 29.8 28.0-32.0 pg Mean Corpuscular Hemoglobin Concent 34.2 32.0-36.0 g/dL Red Cell Distribution Width 14.9 H 11.8-14.3 % Platelet Count 240 140-450 10^3/uL Mean Platelet Volume 8.5 6.9-10.8 fL Neutrophils (%) (Auto) 92.7 H 37.0-80.0 % Lymphocytes (%) (Auto) 3.6 L 10.0-50.0 % Monocytes (%) (Auto) 2.8 0.0-12.0 % Eosinophils (%) (Auto) 0.2 0.0-7.0 % Basophils (%) (Auto) 0.7 0.0-2.0 % Neutrophils # (Auto) 9.0 H 1.6-8.6 10 ^3/uL Lymphocytes # (Auto) 0.3 L 0.4-5.4 10 ^3/uL Monocytes # (Auto) 0.3 0-1.3 10 ^3/uL Eosinophils # (Auto) 0 0-0.8 10 ^3/uL Basophils # (Auto) 0.1 0-0.2 10 ^3/uL Nucleated Red Blood Cells 0.1 % Sodium Level 137 136-145 mmol/L Potassium Level 4.3 3.5-5.1 mmol/L Chloride Level 103 98-107 mmol/L Carbon Dioxide Level 23 20-31 mmol/L Anion Gap 11 5-15 Blood Urea Nitrogen 18 9-23 mg/dL Creatinine 0.88 0.550-1.02 mg/dL Glomerular Filtration Rate Calc 90 >90 mL/min BUN/Creatinine Ratio 20.5 H 10.0-20.0 Serum Glucose 105 74-106 mg/dL Lactic Acid Level 1.8 0.4-2.0 mmol/L Calcium Level 10.6 H 8.7-10.4 mg/dL Total Bilirubin 0.9 0.2-1.0 mg/dL Aspartate Amino Transferase (AST) 18 13-40 U/L Alanine Aminotransferase (ALT) 17 7-40 U/L Alkaline Phosphatase 64 46-116 U/L Total Protein 8.2 5.7-8.2 g/dL Albumin 5.2 H 3.2-4.8 g/dL Lipase 57 H 12-53 U/L Free Thyroxine Index Pending Thyroxine (T4) Pending Triiodothyronine (T3) Uptake Pending Beta HCG, Quantitative 1.2 L 1.5-4.2 mIU/mL Current Medications Medications (Trade) Dose Ordered Sig/Alondra Route Start Time Stop Time Status Last Admin Sodium Chloride 1,000 ml @ 1,000 mls/hr Q1H ONCE IV 08/15/24 18:30 08/15/24 19:29 DC 08/15/24 21:05 Ondansetron HCl (Zofran) 4 mg ONCE ONCE IV 08/15/24 18:30 08/15/24 18:31 DC 08/15/24 21:05 Pantoprazole Sodium (Protonix) 40 mg ONCE ONCE IV 08/15/24 18:30 08/15/24 18:31 DC 08/15/24 21:05 Dicyclomine HCl (Bentyl Injection) 20 mg ONCE ONCE IM 08/15/24 18:30 08/15/24 18:31 DC 08/15/24 21:05 PROCEDURE(s): GBUS - GALLBLADDER REASON: upper abd pain, n/v ORDER NUMBER(s): [id number], ACCESSION NUMBER(s): [id number] INDICATION: upper abd pain, n/v TECHNIQUE: Multiple real-time sonographic images of the abdomen were obtained. COMPARISON: None FINDINGS: The liver is homogenous in echogenicity. The liver measures 14.6 cm. No intrahepatic biliary ductal dilatation is noted. The gallbladder wall measures 0.26 cm and is unremarkable. No gallstones or sludge is seen. The common duct measures 0.32 cm and is unremarkable. No pericholecystic fluid is noted. Negative ultrasound Arita's sign The right kidney measures 8.87 cm. No hydronephrosis. The pancreas is normal. IMPRESSION: 1. Normal exam of the abdomen. EDURE(s): ABPL - CT AB PEL WO CON-NO ORAL OR IV REASON: upper abd pain, n/v ORDER NUMBER(s): [id number], ACCESSION NUMBER(s): [id number] Procedure: CT CT AB PEL WO CON-NO ORAL OR IV 08/15/2024 08:15 PM Indication: upper abd pain, n/v Comparison Study: None Technique: Axial images were obtained and reformatted in coronal and sagittal planes. All CT scans at this medical facility are performed using dose modulation techniques as appropriate to a performed exam including the following: Automated exposure control was utilized; adjustment of the MA and/or KV according to patient size; and use of iterative reconstruction technique. CT Dose: CTDI volume is 6.3 mGy. Dose-length product is 358 mGy*cm FINDINGS: Lower Chest: Unremarkable. Hepatobiliary: Hepatic steatosis. Spleen: Borderline large, 12 cm in craniocaudal. Pancreas: Unremarkable. Adrenal Glands: Unremarkable. tract: The kidneys are normal in size bilaterally without hydronephrosis or nephrolithiasis. The urinary bladder is unremarkable. GI tract: The stomach is grossly normal in appearance. No evidence of small bowel obstruction. The large bowel is unremarkable. Suggestion of appendectomy. Lymphatics: No mesenteric, retroperitoneal or periportal lymphadenopathy. Vasculature: The abdominal aorta is normal in in caliber. Pelvic Organs: Unremarkable Bones/soft tissues: No acute abnormality. Other: None. IMPRESSION: 1. No acute abnormality in the abdomen or pelvis. 2. Mild fecal retention. 3. Borderline splenomegaly. 4. Hepatic steatosis. X-Ray, Labs, Meds, VS Comment 33-year-old female with a history of asthma and thyroid disease brought in by catina mason complaining of epigastric pain, nausea and vomiting for the past 24 hours. Vitals remarkable for heart rate 129, BP 145/80 Exam remarkable for epigastric and right greater than left upper quadrant tenderness to palpation Rhythm strip independently interpreted by me: Sinus tach, rate 126, no ectopy. Gallbladder ultrasound head CT abdomen and pelvis unremarkable CBC and metabolic panel unremarkable, 2 serial troponins negative, lipase elevated at 57, thyroid panel pending Patient treated with the following in the ED: 1 L 0.9 normal saline IV bolus, Zofran 4 mg IV, Protonix 40 mg IV, Tylenol 1 g p.o., Bentyl 20 mg IM, 1 L 0.9 normal saline IV bolus, Ativan 0.5 mg IV On re-evaluation, patient was still having epigastric discomfort and pal pitations. Heart rate was 136. Other vitals were stable. She declined IV morphine or Dilaudid. Another normal saline bolus and IV Ativan were ordered. Plan is to admit the patient for heart rate control, Cardiology and GI evaluation. Case discussed with REYNALDO Phan, who will see the patient in the ED and likely admit for Cardiology evaluation. Time of 1ST Reevaluation: 19:00 Reevaluation 1ST: Unchanged Patient Education/Counseling: Diagnosis, Treatment, Prognosis Family Education/Counseling: No Family Present Departure 1 Departure Time of Disposition: 22:32 Impression: Primary Impression: Abdominal pain Qualified Codes: R10.10 - Upper abdominal pain, unspecified Additional Impressions: Elevated lipase Palpitations Tachycardia Disposition: ADMITTED INPATIENT Admit to: Tele Condition: Guarded Critical Care Note Critical Care Time?: No Stability Stability form required: No Heart Score Heart Score: Heart Score Response (Comments) Value History N/A 0 EKG N/A 0 Age N/A 0 Risk Factors N/A 0 Troponin N/A 0 Total 0 I personally scribed for FOREST SCTOT MD ([email or web address]) on 08/15/24 at 19:32. Electronically submitted by Nahun Chao ([email or web address]). FOREST SCOTT MD Aug 15, 2024 19:32
--- NOTE | 2024-08-15 19:35 | DVH ---
INDICATION: upper abd pain, n/v TECHNIQUE: Multiple real-time sonographic images of the abdomen were obtained. COMPARISON: None FINDINGS: The liver is homogenous in echogenicity. The liver measures 14.6 cm. No intrahepatic bilia ry ductal dilatation is noted. The gallbladder wall measures 0.26 cm and is unremarkable. No gallstones or sludge is seen. The co mmon duct measures 0.32 cm and is unremarkable. No pericholecystic fluid is noted. Negative ultrasou nd Arita's sign The right kidney measures 8.87 cm. No hydronephrosis. The pancreas is normal. IMPRESSION: 1. Normal exam of the abdomen.
[2024-08-15 19:39] VITALS: PULSE 136; RESP 17; O2SAT 97
[2024-08-15 19:43] LABS: Alanine Aminotransferase 17 U/L (7-40); Alkaline Phosphatase 64 U/L (46-116); Anion Gap 11 (5-15); Aspartate Aminotransferase 18 U/L (13-40); BUN/Creatinine Ratio 20.5 (10.0-20.0); Bilirubin, Total 0.9 mg/dL (0.2-1.0); Blood Urea Nitrogen 18 mg/dL (9-23); Carbon Dioxide 23 mmol/L (20-31); Chloride 103 mmol/L (98-107); Glucose 105 mg/dL (74-106); Potassium 4.3 mmol/L (3.5-5.1); Sodium 137 mmol/L (136-145)
[2024-08-15 19:44] LABS: Albumin 5.2 g/dL (3.2-4.8); Calcium 10.6 mg/dL (8.7-10.4); Lipase 57 U/L (12-53); Total Protein 8.2 g/dL (5.7-8.2)
[2024-08-15] MEDS: ACETAMINOPHEN 500 MG TAB or CAP PO ONE (21:05)
[2024-08-15] MEDS: DICYCLOMINE HCL (10MG/ML) 2 ML AMPULE IM ONE (21:05)
[2024-08-15] MEDS: PANTOPRAZOLE 40 MG/10 ML VIAL INJ IV ONE (21:05)
[2024-08-15] MEDS: ONDANSETRON HCL 4 MG/2 ML VIAL IV ONE (21:05)
[2024-08-15] MEDS: SODIUM CHLORIDE 0.9% 1,000 ML IV ONE (21:05)
--- NOTE | 2024-08-15 21:23 | DVH ---
Procedure: CT CT AB PEL WO CON-NO ORAL OR IV 08/15/2024 08:15 PM Indication: upper abd pain, n/v Comparison Study: None Technique: Axial images were obtained and reformatted in coronal and sagittal planes. All CT scans at this medical facility are performed using dose modulation techniques as appropriate to a performed e xam including the following: Automated exposure control was utilized; adjustment of the MA and/or KV according to patient size; and use of iterative reconstruction technique. CT Dose: CTDI volume is 6.3 mGy. Dose-length product is 358 mGy*cm FINDINGS: Lower Chest: Unremarkable. Hepatobiliary: Hepatic steatosis. Spleen: Borderline large, 12 cm in craniocaudal. Pancreas: Unremarkable. Adrenal Glands: Unremarkable. tract: The kidneys are normal in size bilaterally without hydronephrosis or nephrolithiasis. The u rinary bladder is unremarkable. GI tract: The stomach is grossly normal in appearance. No evidence of small bowel obstruction. The la rge bowel is unremarkable. Suggestion of appendectomy. Lymphatics: No mesenteric, retroperitoneal or periportal lymphadenopathy. Vasculature: The abdominal aorta is normal in in caliber. Pelvic Organs: Unremarkable Bones/soft tissues: No acute abnormality. Other: None. IMPRESSION: 1. No acute abnormality in the abdomen or pelvis. 2. Mild fecal retention. 3. Borderline splenomegaly. 4. Hepatic steatosis.
[2024-08-16] VITALS (7 sets, daily range): BP systolic 112–130; BP diastolic 65–77; PULSE 90–99; RESP 16–18; TEMP 97.7–98.6; O2SAT 95–99
[2024-08-16] MEDS: LORazepam 2MG/ML-1ML VIAL IV ONE (00:14)
[2024-08-16] MEDS: SODIUM CHLORIDE 0.9% 1,000 ML IV ONE (00:14)
[2024-08-16] MEDS ORDERED: DOCUSATE SOD 100 MG CAP PO PRN (00:15)
[2024-08-16] MEDS ORDERED: NITROGLYCERIN 0.4 MG SL TAB SL PRN (00:15)
[2024-08-16] MEDS: SODIUM CHLORIDE 0.9% 1,000 ML IV SCH (00:15)
[2024-08-16] MEDS ORDERED: MORPHINE SULFATE INJ 2 MG/ml SYRG IV PRN (00:15)
--- NOTE | 2024-08-16 01:14 | DVH ---
EXAM: US THYROID HISTORY: right sided abnormal COMPARISON: None TECHNIQUE: Real-time sonographic imaging was performed of the thyroid gland using grayscale and color flow imaging with a high-frequency linear transducer. FINDINGS: Thyroid appears to be generally normal in echotexture. Isthmus is thickened measuring 3.6 mm AP and i s larger than normal left lobe measures 3.8 x 1.7 x 3 cm right lobe measures 3.8 x 1.4 x 1.1 cm There are no thyroid nodules in general the thyroid appears homogeneous. IMPRESSION: 1. Thickened isthmus of the thyroid otherwise unremarkable study [employer] TI-RADS Categories and Recommendations (2017): TR1: 0 points, Benign, No FNA TR2: 2 points, Not suspicious, No FNA TR3: 3 points, Mildly suspicious, FNA if > or = 2.5 cm, Follow if > or = 1.5 cm TR4: 4-6 points, Moderately Suspicious, FNA if > or = 1.5 cm, Follow if > or = 1.0 cm TR5: 7+ points, Highly Suspicious, FNA if > or = 1.0 cm, Follow if > or = 0.5 cm Follow-up ultrasound guidelines: TR5: yearly for 5 years, if no growth or change in TI-RADS level TR4: at 1, 2, 3 and 5 years, if no growth or change in TI-RADS level TR3: at 1, 3 and 5 years, if no growth or change in TI-RADS level If increased but below threshold for FNA, repeat in one year. Source: ACR Thyroid Imaging, Reporting and Data System (TI-RADS): White Paper of the ACR TI-RADS Committee. Nathalie et al., J Am Ludmila Radiol 2017;14:587-595.
--- NOTE | 2024-08-16 02:24 | DVHHP2 ---
ALIDA HOUSTON VETERINARY MEDICINE TEACHER 08/16/24 0224: History of Present Illness Reason for Visit: Epigastric Pain, nausea, vomiting History of Present Illness 33-year-old female who presents with complaints of epigastric abdominal pain, nausea, vomiting x1 day. Patient endorses subjective fever. Also endorses she is unable to tolerate oral intake. There are no complaints of shortness of breath, leg swelling, hematemesis, hematochezia, melena. On arrival to the emergency department patient was noted to be tachycardic with heart rates ranging from 130-160. Patient also endorses abnormal lump to the right side of the neck without confirmed diagnosis of thyroid disorders. At this time patient is admitted for further evaluation and treatment. Smoke: No ALCOHOL: none Drugs: None Lives: with Family Review of Systems Constitutional: Yes: Fever, Weakness; No: Chills, Sweats, Malaise, Other Eyes: No: Pain, Vision change, Conjunctivae inflammation, Eyelid inflammation, Other, Redness ENT: No: Ear pain, Ear discharge, Nose pain, Nose discharge, Nose congestion, Mouth pain, Mouth swelling, Throat pain, Throat swelling, Other Respiratory: No: Cough, Dry, Shortness of breath, SOB with excertion, Wheezing, Hemoptysis, Pleuritic Pain, Sputum, Wheezing, Other Cardiovascular: Chest Pain; No: Palpitations, Orthopnea, Paroxysmal Noc. Dyspnea, Edema, Lt Headedness, Other Gastrointestinal: Nausea, Vomiting, Abdominal Pain; No: Diarrhea, Constipation, Melena, Hematochezia, Other Genitourinary: No Dysuria, No Frequency, No Incontinence, No Hematuria, No Retention, No Other Musculoskeletal: No: other, neck pain, shoulder pain, arm pain, back pain, hand pain, leg pain, foot pain Skin: No: Rash, Lesions, Jaundice, Bruising, Other Neurological: No: Weakness, Numbness, Incoordination, Change in speech, Confusion, Seizures, Other Allergies: Coded Allergies: Amoxicillin (Verified Allergy, Severe, 07/03/18) Cephalexin (Verified Allergy, Unknown, 03/25/24) Furosemide (Verified Allergy, Unknown, 12/30/20) Ibuprofen (Verified Allergy, Unknown, 03/25/24) Latex (Verified Allergy, Unknown, 08/15/24) Penicillins (Verified Allergy, Unknown, 10/15/24) Medications Current Medications Medications Dose Ordered Sig/Alondra Route Start Time Stop Time Status Last Admin Dose Admin Sodium Chloride 1,000 ml @ 100 mls/hr Q10H IV 08/16/24 00:15 08/16/24 10:14 Docusate Sodium 100 mg BIDPRN PRN PO 08/16/24 00:15 Acetaminophen 650 mg Q6HP PRN PO 08/16/24 00:15 Ondansetron HCl 4 mg Q4HP PRN IV 08/16/24 00:15 Nitroglycerin 0.4 mg Q5MINP PRN SL 08/16/24 00:15 Morphine Sulfate 2 mg Q30M PRN IV 08/16/24 00:15 Pantoprazole Sodium 40 mg DAILY IV 08/16/24 10:00 Exam Vital Signs Vital Signs Date Time Temp Pulse Resp B/P (MAP) Pulse Ox O2 Delivery O2 Flow Rate FiO2 08/16/24 01:46 98.9 94 16 117/68 (84) 96 98.9 08/15/24 19:39 Room Air* 0 21 General Appearance: Alert, Oriented X3, Cooperative, moderate distress HEENT: Atraumatic, PERRLA, EOMI Respiratory: Clear to auscultation, Normal air movement Cardiovascular: Normal S1, Normal S2, Other (Sinus tachycardia) Abdominal: Normal bowel sounds, Soft Extremities: No clubbing, No cyanosis Skin: No breakdown, No significant lesion Neuro: Normal speech, Strength at 5/5 X4 ext Psych/Mental Status: Mental status NL, Mood NL Labs/Xrays Labs Test 08/15/24 19:59 08/15/24 18:50 Range/Units Troponin I High Sensitivity < 3 L </=34 ng/L White Blood Count 9.7 4.4-10.8 10^3/uL Red Blood Count 5.49 H 4.0-5.20 10^6/uL Hemoglobin 16.4 H 12.2-16.2 g/dL Hematocrit 47.9 H 36.0-46.0 % Mean Corpuscular Volume 87.3 80.0-100.0 fL Mean Corpuscular Hemoglobin 29.8 28.0-32.0 pg Mean Corpuscular Hemoglobin Concent 34.2 32.0-36.0 g/dL Red Cell Distribution Width 14.9 H 11.8-14.3 % Platelet Count 240 140-450 10^3/uL Mean Platelet Volume 8.5 6.9-10.8 fL Neutrophils (%) (Auto) 92.7 H 37.0-80.0 % Lymphocytes (%) (Auto) 3.6 L 10.0-50.0 % Monocytes (%) (Auto) 2.8 0.0-12.0 % Eosinophils (%) (Auto) 0.2 0.0-7.0 % Basophils (%) (Auto) 0.7 0.0-2.0 % Neutrophils # (Auto) 9.0 H 1.6-8.6 10 ^3/uL Lymphocytes # (Auto) 0.3 L 0.4-5.4 10 ^3/uL Monocytes # (Auto) 0.3 0-1.3 10 ^3/uL Eosinophils # (Auto) 0 0-0.8 10 ^3/uL Basophils # (Auto) 0.1 0-0.2 10 ^3/uL Nucleated Red Blood Cells 0.1 % Sodium Level 137 136-145 mmol/L Potassium Level 4.3 3.5-5.1 mmol/L Chloride Level 103 98-107 mmol/L Carbon Dioxide Level 23 20-31 mmol/L Anion Gap 11 5-15 Blood Urea Nitrogen 18 9-23 mg/dL Creatinine 0.88 0.550-1.02 mg/dL Glomerular Filtration Rate Calc 90 >90 mL/min BUN/Creatinine Ratio 20.5 H 10.0-20.0 Serum Glucose 105 74-106 mg/dL Lactic Acid Level 1.8 0.4-2.0 mmol/L Calcium Level 10.6 H 8.7-10.4 mg/dL Total Bilirubin 0.9 0.2-1.0 mg/dL Aspartate Amino Transferase (AST) 18 13-40 U/L Alanine Aminotransferase (ALT) 17 7-40 U/L Alkaline Phosphatase 64 46-116 U/L Total Protein 8.2 5.7-8.2 g/dL Albumin 5.2 H 3.2-4.8 g/dL Lipase 57 H 12-53 U/L Beta HCG, Quantitative 1.2 L 1.5-4.2 mIU/mL Assessment/Plan Assessment/Plan Tachycardia Intractable epigastric pain Nausea/vomiting Dehydration Mass to right neck Plan Admit telemetry Consult gastroenterology. Thyroid US. TSH. T3 T4 IV fluids As needed antiemetics GI PPX Pepcid/DVT PPX SCDs Plan discussed with: Patient My Orders Orders - ALIDA HOUSTON NP Procedure Category Date Status Time Admit ADMIT 08/16/24 Transmitted 00:15 Code Status CODE 08/16/24 Transmitted 00:15 Vital Signs [facility] 08/16/24 In Process 00:15 Review Orders With [facility] 08/16/24 In Process Adm. 00:15 Encourage Activity As PRASANNA 08/16/24 In Process Tolerate 00:15 Sodium Chloride 0.9% PHA 08/16/24 In Process 00:15 Oxygen By Face Mask RT 08/16/24 Transmitted 00:15 Docusate Sodium PHA 08/16/24 In Process Capsule (Colace 00:15 Acetaminophen Tablet PHA 08/16/24 In Process (Tylenol Tablet) 00:15 Notify Of Changes [facility] 08/16/24 In Process From Base 00:15 Advance Directive [facility] 08/16/24 In Process 00:15 Echo 2d Mode Cardiac US 08/16/24 Logged DOP 00:15 Basic Metabolic Panel LAB 08/16/24 Logged 05:00 Basic Metabolic Panel LAB 08/17/24 Verified 05:00 Basic Metabolic Panel LAB 08/18/24 Verified 05:00 Complete Blood Count LAB 08/16/24 Logged 05:00 Complete Blood Count LAB 08/17/24 Verified 05:00 Complete Blood Count LAB 08/18/24 Verified 05:00 Patient Condition ORDERS 08/16/24 Transmitted 00:15 Allergies [facility] 08/16/24 In Process 00:15 Ondansetron Hcl PHA 08/16/24 In Process (Zofran) 00:15 Nitroglycerin [facility] 08/16/24 In Process Sublingual (Ntrostat 00:15 Morphine Sulfate PHA 08/16/24 In Process Injection 00:15 Stat Ekg For Chest [facility] 08/16/24 In Process Pain 00:15 Notify Of Changes [facility] 08/16/24 In Process From Base 00:15 Indian Trader For [facility] 08/16/24 In Process 24 Hours 00:15 Emergency Dysrhythmia [facility] 08/16/24 In Process Protocol 00:15 Rhythm Strips Once [facility] 08/16/24 In Process Every Shift 00:15 Oxygen By Nasal RT 08/16/24 Transmitted Cannula 00:15 Thyroid Stimulating LAB 08/16/24 Logged Hormone 04:00 * [facility] Government Relations Analyst CONS 08/16/24 Transmitted 00:15 Thyroid US 08/16/24 Resulted 00:15 Pantoprazole PHA 08/16/24 In Process (Protonix) 10:00 Drug Screen LAB 08/16/24 Logged 00:15 Urinalysis LAB 08/16/24 Logged 00:15 Clear Liq Diet DIET 08/16/24 Transmitted Breakfast Date of Service: Aug 16, 2024 Billing Provider: ARINA MARAVILLA MD Common Visit Codes: NOT BILLABLE ARINA MARAVILLA MD 08/16/24 1505: Review of Systems Allergies: Coded Allergies: Amoxicillin (Verified Allergy, Severe, 07/03/18) Cephalexin (Verified Allergy, Unknown, 03/25/24) Furosemide (Verified Allergy, Unknown, 12/30/20) Ibuprofen (Verified Allergy, Unknown, 03/25/24) Latex (Verified Allergy, Unknown, 08/15/24) Penicillins (Verified Allergy, Unknown, 03/25/24) Assessment/Plan Assessment/Plan Patient's chart is reviewed and discussed with the nurse practitioner. I agree with the nurse practitioner's evaluation, documentation, assessment and care plan as outlined. Plan discussed with: ALIDA Nicole NP Aug 16, 2024 02:24 ARINA MARAVILLA MD Aug 16, 2024 15:05
[2024-08-16] MEDS ORDERED: HYDRX10T PO (05:23)
[2024-08-16 09:21] LABS: Basophils # (auto) 0 10 ^3/uL (0-0.2); Basophils % (auto) 0.4 % (0.0-2.0); Eosinophils # (auto) 0 10 ^3/uL (0-0.8); Eosinophils % (auto) 0.8 % (0.0-7.0); Hematocrit 41.9 % (36.0-46.0); Hemoglobin 14.1 g/dL (12.2-16.2); Lymphocytes # (auto) 0.8 10 ^3/uL (0.4-5.4); Lymphocytes % (auto) 16.1 % (10.0-50.0); Mean Corpuscular Hemoglobin 29.3 pg (28.0-32.0); Mean Corpuscular Hgb Conc. 33.6 g/dL (32.0-36.0); Mean Corpuscular Volume 87.2 fL (80.0-100.0); Monocytes # (auto) 0.3 10 ^3/uL (0-1.3); Monocytes % (auto) 6.4 % (0.0-12.0); Neutrophils # (auto) 3.6 10 ^3/uL (1.6-8.6); Neutrophils % (auto) 76.3 % (37.0-80.0); Platelet Count (auto) 166 10^3/uL (140-450); Red Cell Distribution Width 15.2 % (11.8-14.3); White Blood Cell 4.8 10^3/uL (4.4-10.8)
[2024-08-16 09:47] LABS: Potassium 3.9 mmol/L (3.5-5.1); Sodium 139 mmol/L (136-145)
[2024-08-16 09:48] LABS: Anion Gap 6 (5-15); Carbon Dioxide 22 mmol/L (20-31)
[2024-08-16 09:49] LABS: Calcium 8.9 mg/dL (8.7-10.4)
[2024-08-16 09:52] LABS: Chloride 111 mmol/L (98-107)
[2024-08-16 09:53] LABS: BUN/Creatinine Ratio 14.7 (10.0-20.0); Blood Urea Nitrogen 10 mg/dL (9-23); Glucose 104 mg/dL (74-106)
[2024-08-16] MEDS: PANTOPRAZOLE 40 MG/10 ML VIAL INJ IV SCH (09:56)
--- NOTE | 2024-08-16 12:36 | DVHSR ---
APPROVED REPORT EXAM: Two-dimensional and M-mode echocardiogram with Doppler and color Doppler. Blood Pressure: 112/65 mmHg INDICATION Tachycardia RISK FACTORS Height: 5'4, Weight: 155 DIMENSIONS LVDd4.1 (3.8-5.7cm)LA (2D)3.2 (1.9-4.0cm)Aortic Root3.0 (2.0-3.7cm) LVDs3.0 (2.5-4.0cm)LA (MM) (1.9-4.0cm)Aortic Cusp Exc1.5 (1.5-2.0cm) EF (%) 60.0 (55-70%)Rt. Atrium3.1 (1.9-4.0cm)Asc. Aorta2.4 cm IVSd0.9 (0.7-1.1cm)RV (D)3.4 (1.8-2.4cm) PWd1.0 (0.7-1.1cm) Mitral Valve MitralMitral Stenosis E wave0.83m/sMV Mean GR.mmHg A wave0.64m/sMV Peak GR.mmHg E/A ratio1.32D MVAcm2 DECEL [id number] 1/2 Timems Aortic Valve Aortic ValveAortic Stenosis V10.77m/Binta Mean GR.5mmHg V21.39m/Binta Peak GR.8mmHg LVOT Diameter2.2 (1.8-2.4cm)Doppler AVA2.10cm2 Pulmonic Valve V20.81m/s Tricuspid Valve TR Velocity2.18m/s [id number] Conclusion lvef 60% by visual estimate normal rv function normal atria no severe valve abnormalities noted normal pericardium
--- NOTE | 2024-08-16 16:00 | DVHINCON2 ---
Date of service: Aug 16, 2024 Referring Physician Sylvester Reason for Consultation Abdominal pain Nausea and vomiting History of Present Illness Patient is a 33-year-old female with no significant past history other than asthma, admitted with nausea and vomiting, epigastric abdominal pain and subj ective fever for 24 hours. Patient had multiple episodes of nonbloody emesis. She denies prior hospitalization for similar. She states that everybody at the home is ill. She denies dysphagia or odynophagia, she denies constipation diarrhea. CT scan showed hepatomegaly and borderline splenomegaly. Patient states that she has not been taking any medications, denies tobacco or alcohol use. Patient also noted to have tachycardia likely due to dehydration upon admission Past Medical History As above Past Surgical History Denies Family History: Cervical cancer G8 MOTHER Family History No gastrointestinal diseases or malignancies Allergies: Coded Allergies: Amoxicillin (Verified Allergy, Severe, 07/03/18) Cephalexin (Verified Allergy, Unknown, 03/25/24) Furosemide (Verified Allergy, Unknown, 12/30/20) Ibuprofen (Verified Allergy, Unknown, 03/25/24) Latex (Verified Allergy, Unknown, 08/15/24) Penicillins (Verified Allergy, Unknown, 03/25/24) Home Meds Reported Medications Hydroxyzine Hcl (Hydroxyzine Hcl) 10 Mg Tab, 5 MG PO PRN for 30 Days, MG 08/16/24 Current Medications Current Medications Medications (Trade) Dose Ordered Sig/Alondra Route PRN Reason Start Time Stop Time Status Last Admin Sodium Chloride 1,000 ml @ 100 mls/hr Q10H IV 08/16/24 00:15 08/16/24 10:14 DC Docusate Sodium (Colace Capsule) 100 mg BIDPRN PRN PO FOR CONSTIPATION 08/16/24 00:15 Acetaminophen (Tylenol Tablet) 650 mg Q6HP PRN PO PAIN SCALE 1-3 OR TEMP>100.4 08/16/24 00:15 Ondansetron HCl (Zofran) 4 mg Q4HP PRN IV NAUSEA / VOMITING 08/16/24 00:15 Nitroglycerin (Ntrostat Sublingual) 0.4 mg Q5MINP PRN SL FOR CHEST PAIN 08/16/24 00:15 Morphine Sulfate 2 mg Q30M PRN IV FOR CHEST PAIN 08/16/24 00:15 Pantoprazole Sodium (Protonix) 40 mg DAILY IV 08/16/24 10:00 08/16/24 09:56 Acetaminophen/ Hydrocodone Bitart ([place] 5/325MG Tab) 1 tab Q4HPRN PRN PO MODERATE PAIN (4-6 PAIN SCALE) 08/16/24 14:45 Review of Systems 12 point review of systems as per HPI Vital Signs Vital Signs Date Time Temp Pulse Resp B/P (MAP) Pulse Ox O2 Delivery O2 Flow Rate FiO2 08/16/24 12:56 98.2 98 16 120/77 (91) 97 98.2 08/16/24 08:00 Room Air* 0 21 Physical Exam General: Alert and oriented x4 no distress HEENT: NC/AT EOMI PERRLA O/P clear Heart: Regular rate and rhythm Abdomen: Soft and mild epigastric tenderness to palpation no masses nor organomegaly palpable Extremity: No clubbing cyanosis or edema Labs/Diagnostic Data Labs Test 08/16/24 14:00 08/16/24 09:04 08/15/24 19:59 08/15/24 18:50 Range/Units White Blood Count 4.8 # 4.4-10.8 10^3/uL Red Blood Count 4.80 4.0-5.20 10^6/uL Hemoglobin 14.1 12.2-16.2 g/dL Hematocrit 41.9 # 36.0-46.0 % Mean Corpuscular Volume 87.2 80.0-100.0 fL Mean Corpuscular Hemoglobin 29.3 28.0-32.0 pg Mean Corpuscular Hemoglobin Concent 33.6 32.0-36.0 g/dL Red Cell Distribution Width 15.2 H 11.8-14.3 % Platelet Count 166 140-450 10^3/uL Mean Platelet Volume 7.8 6.9-10.8 fL Neutrophils (%) (Auto) 76.3 37.0-80.0 % Lymphocytes (%) (Auto) 16.1 10.0-50.0 % Monocytes (%) (Auto) 6.4 0.0-12.0 % Eosinophils (%) (Auto) 0.8 0.0-7.0 % Basophils (%) (Auto) 0.4 0.0-2.0 % Neutrophils # (Auto) 3.6 1.6-8.6 10 ^3/uL Lymphocytes # (Auto) 0.8 0.4-5.4 10 ^3/uL Monocytes # (Auto) 0.3 0-1.3 10 ^3/uL Eosinophils # (Auto) 0 0-0.8 10 ^3/uL Basophils # (Auto) 0 0-0.2 10 ^3/uL Nucleated Red Blood Cells 0.0 % Sodium Level 139 136-145 mmol/L Potassium Level 3.9 3.5-5.1 mmol/L Chloride Level 111 H 98-107 mmol/L Carbon Dioxide Level 22 20-31 mmol/L Anion Gap 6 5-15 Blood Urea Nitrogen 10 9-23 mg/dL Creatinine 0.68 0.550-1.02 mg/dL Glomerular Filtration Rate Calc 119 >90 mL/min BUN/Creatinine Ratio 14.7 10.0-20.0 Serum Glucose 104 74-106 mg/dL Calcium Level 8.9 8.7-10.4 mg/dL Thyroid Stimulating Hormone (TSH) 1.48 0.55-4.78 uIU/mL Troponin I High Sensitivity < 3 L </=34 ng/L Lactic Acid Level 1.8 0.4-2.0 mmol/L Total Bilirubin 0.9 0.2-1.0 mg/dL Aspartate Amino Transferase (AST) 18 13-40 U/L Alanine Aminotransferase (ALT) 17 7-40 U/L Alkaline Phosphatase 64 46-116 U/L Total Protein 8.2 5.7-8.2 g/dL Albumin 5.2 H 3.2-4.8 g/dL Lipase 57 H 12-53 U/L Beta HCG, Quantitative 1.2 L 1.5-4.2 mIU/mL Microbiology Date/Time Source Procedure Growth Status 08/16/24 02:30 Nose MRSA Screen - Final Complete Assessment 1. Nausea and vomiting 2. Abdominal pain Differential diagnosis includes peptic ulcer disease versus gastroenteritis versus other. Nursing staff noted improvement with Protonix. Patient is tolerating clear liquid diet. Problems(with codes): (1) Abdominal pain Plan/Recommendation 1. Continue current medications 2. Diet as tolerated 3. Consider outpatient follow up and workup for fatty liver disease 4. Consider EGD if the patient's symptoms do not improve 5. Conservative management at this time Plan discussed with: Patient ROB CERRATO MD Aug 16, 2024 16:00
[2024-08-16 16:07] LABS: Urine Bacteria FEW /hpf (None Seen); Urine Blood Negative /uL (Negative); Urine Clarity Turbid (Clear); Urine Color Light-Yellow (Yellow); Urine Protein, UAD Negative (Negative); Urine Specific Gravity 1.011 (1.001-1.035); Urine Squamous Epithelial Cell MOD /hpf (<5); Urine Urobilinogen Normal (Negative); Urine WBC 4 /HPF (0-5); Urine pH 5.5 (5.0-9.0)
[2024-08-16 16:20] LABS: Amphetamine Screen, Urine Neg (NEGATIVE); Barbiturate Scree,Urine Neg (NEGATIVE); Benzodiazephine Screen, Urine Neg (NEGATIVE); Cannabinoid Screen, Urine Neg (NEGATIVE); Cocaine Screen, Urine Neg (NEGATIVE); Opiate Scree,Urine Neg (NEGATIVE); Phencyclidine Screen, Urine Neg (NEGATIVE)
[2024-08-16] MEDS: ONDANSETRON HCL 4 MG/2 ML VIAL IV PRN (20:00)
[2024-08-16] MEDS: HYDROcodone-ACET 5/325MG TAB PO PRN (21:48)
[2024-08-17] VITALS (7 sets, daily range): BP systolic 100–130; BP diastolic 41–89; PULSE 59–76; RESP 16–18; TEMP 97.5–98.7; O2SAT 95–97
[2024-08-17 07:08] LABS: Alanine Aminotransferase 14 U/L (7-40); Albumin 3.9 g/dL (3.2-4.8); Alkaline Phosphatase 50 U/L (46-116); Anion Gap 10 (5-15); Aspartate Aminotransferase 20 U/L (13-40); BUN/Creatinine Ratio 14.9 (10.0-20.0); Blood Urea Nitrogen 10 mg/dL (9-23); Calcium 9.6 mg/dL (8.7-10.4); Carbon Dioxide 23 mmol/L (20-31); Chloride 107 mmol/L (98-107); Glucose 104 mg/dL (74-106); Sodium 140 mmol/L (136-145); Total Protein 6.2 g/dL (5.7-8.2)
[2024-08-17 07:09] LABS: Bilirubin, Total 0.6 mg/dL (0.2-1.0)
[2024-08-17 07:20] LABS: Hematocrit 39.9 % (36.0-46.0); Hemoglobin 13.4 g/dL (12.2-16.2); Mean Corpuscular Hemoglobin 29.1 pg (28.0-32.0); Mean Corpuscular Hgb Conc. 33.6 g/dL (32.0-36.0); Mean Corpuscular Volume 86.7 fL (80.0-100.0); Platelet Count (auto) 179 10^3/uL (140-450); Red Blood Cells 4.61 10^6/uL (4.0-5.20); Red Cell Distribution Width 14.5 % (11.8-14.3); White Blood Cell 3.6 10^3/uL (4.4-10.8)
[2024-08-17 07:34] LABS: Band Neutrophils % (manual) 0; Basophils % (manual) 0 (0.0-2.0); Blast Cells 0; Metamyelocytes % 0; Myelocytes % 0; Promyelocytes % 0; Reactive Lymphocytes 0
[2024-08-17 07:56] LABS: Eosinophils % (manual) 4 (0-7); Lymphocytes % (manual) 51 (10.0-50.0); Monocytes % (manual) 10 (0-12)
[2024-08-17 07:57] LABS: Platelet Estimate Adequate; RBC Morphology Normal
[2024-08-17] MEDS: ACETAMINOPHEN 325 MG TAB PO PRN (09:59)
--- NOTE | 2024-08-17 17:04 | DVHPN2 ---
Progress Note - Dictate Date Seen: Aug 17, 2024 Medical Necessity Reason Pt with a Central, PICC or Fol: No Subjective Clinically feeling better and noticed some improvement in her epigastric/abdominal discomfort with the Protonix. Evaluated by construction stonemason. vital signs Vital Sign Date Time Temp Pulse Resp B/P (MAP) Pulse Ox O2 Delivery O2 Flow Rate FiO2 08/17/24 13:10 98.7 74 17 123/89 (100) 96 98.7 08/17/24 08:21 Room Air* 0 21 Total Intake and Output 08/16/24 08/16/24 08/17/24 15:00 23:00 07:00 Intake Total 400 ml 400 ml Balance 400 ml 400 ml medications Current Medications Medications Dose Ordered Sig/Alondra Route Start Time Stop Time Status Last Admin Dose Admin Docusate Sodium 100 mg BIDPRN PRN PO 08/16/24 00:15 Acetaminophen 650 mg Q6HP PRN PO 08/16/24 00:15 08/17/24 09:59 650 MG Ondansetron HCl 4 mg Q4HP PRN IV 08/16/24 00:15 08/16/24 20:00 4 MG Nitroglycerin 0.4 mg Q5MINP PRN SL 08/16/24 00:15 Morphine Sulfate 2 mg Q30M PRN IV 08/16/24 00:15 Acetaminophen/ Hydrocodone Bitart 1 tab Q4HPRN PRN PO 08/16/24 14:45 08/16/24 21:48 1 TAB Pantoprazole Sodium 40 mg BID IV 08/17/24 22:00 objective Comfortable in bed without distress. HEENT neck supple no JVD. Heart regular rate and rhythm S1-S2. Lungs without rales wheezes. Abdomen obese soft nontender positive bowel sounds. Extremities no edema. laboratory and microbiology Laboratory Tests 08/17/24 04:26 Test 08/17/24 04:26 Range/Units Serum Glucose 104 74-106 mg/dL Assessment/Plan Patient's symptoms improved with Protonix. We will continue Protonix IV b.i.d.. Continue soft diet. Monitor overnight. If he remains stable consider discharge home tomorrow. Otherwise consider EGD. Discussed with the nurse regarding care plan. Problems(with codes): (1) Abdominal pain (2) GERD (gastroesophageal reflux disease) Plan discussed with: ARINA Lilly MD Aug 17, 2024 17:04
--- NOTE | 2024-08-17 22:16 | DVHPN2 ---
Progress Note - Dictate Date Seen: Aug 17, 2024 Medical Necessity Reason Pt with a Central, PICC or Fol: No Subjective No new complaints ; mild epigastric discomfort Patient states epigastric pain is somewhat improving with medications vital signs Vital Sign Date Time Temp Pulse Resp B/P (MAP) Pulse Ox O2 Delivery O2 Flow Rate FiO2 08/17/24 21:00 98.1 72 18 130/65 (86) 97 98.1 08/17/24 08:21 Room Air* 0 21 Total Intake and Output 08/16/24 08/16/24 08/17/24 15:00 23:00 07:00 Intake Total 400 ml 400 ml Balance 400 ml 400 ml medications Current Medications Medications Dose Ordered Sig/Alondra Route Start Time Stop Time Status Last Admin Dose Admin Docusate Sodium 100 mg BIDPRN PRN PO 08/16/24 00:15 Acetaminophen 650 mg Q6HP PRN PO 08/16/24 00:15 08/17/24 18:18 650 MG Ondansetron HCl 4 mg Q4HP PRN IV 08/16/24 00:15 08/16/24 20:00 4 MG Nitroglycerin 0.4 mg Q5MINP PRN SL 08/16/24 00:15 Morphine Sulfate 2 mg Q30M PRN IV 08/16/24 00:15 Acetaminophen/ Hydrocodone Bitart 1 tab Q4HPRN PRN PO 08/16/24 14:45 08/16/24 21:48 1 TAB Pantoprazole Sodium 40 mg BID IV 08/17/24 22:00 objective General: Alert and oriented x4 no distress HEENT: NC/AT EOMI PERRLA O/P clear Heart: Regular rate and rhythm Abdomen: Soft and mild epigastric tenderness to palpation no masses nor organomegaly palpable Extremity: No clubbing cyanosis or edema laboratory and microbiology Laboratory Tests 08/17/24 04:26 Test 08/17/24 04:26 Range/Units Serum Glucose 104 74-106 mg/dL Problems(with codes): (1) GERD (gastroesophageal reflux disease) (2) Elevated lipase (3) Abdominal pain Prognosis Plan Protonix 40 mg IV q.12 hours Carafate 1 g p.o. twice a day I will tentatively schedule her for an EGD on 08/18/2024 if the patient is agreeable Monitor labs and repeat lipase Discontinue alcohol and smoking Outpatient follow up with GI Services for continued management and observation of her GI issues including fatty liver and epigastric pain Plan discussed with: Patient MARLEE COSME MD Aug 17, 2024 22:16
[2024-08-17] MEDS: PANTOPRAZOLE 40 MG/10 ML VIAL INJ IV SCH (22:44)
[2024-08-18] VITALS (10 sets, daily range): BP systolic 111–131; BP diastolic 52–84; PULSE 62–113; RESP 11–20; TEMP 97.6–98.3; O2SAT 95–100
[2024-08-18 06:24] LABS: Anion Gap 9 (5-15); Carbon Dioxide 28 mmol/L (20-31); Chloride 103 mmol/L (98-107); Potassium 3.7 mmol/L (3.5-5.1); Sodium 140 mmol/L (136-145)
[2024-08-18 06:25] LABS: Basophils # (auto) 0 10 ^3/uL (0-0.2); Basophils % (auto) 0.6 % (0.0-2.0); Eosinophils # (auto) 0.2 10 ^3/uL (0-0.8); Eosinophils % (auto) 3.5 % (0.0-7.0); Hematocrit 42.7 % (36.0-46.0); INR 1.03 (0.9-1.15); Lymphocytes # (auto) 2.1 10 ^3/uL (0.4-5.4); Lymphocytes % (auto) 44.1 % (10.0-50.0); Mean Corpuscular Hemoglobin 30.1 pg (28.0-32.0); Mean Corpuscular Hgb Conc. 35.1 g/dL (32.0-36.0); Mean Corpuscular Volume 85.7 fL (80.0-100.0); Monocytes # (auto) 0.4 10 ^3/uL (0-1.3); Monocytes % (auto) 8.9 % (0.0-12.0); Neutrophils % (auto) 42.9 % (37.0-80.0); Nucleated Red Blood Cells % 0.1 %; Partial Thromboplastin Time 20.2 SEC (24.5-34.5); Platelet Count (auto) 195 10^3/uL (140-450); Prothrombin Time 10.9 sec (9.3-11.8); Red Blood Cells 4.98 10^6/uL (4.0-5.20); Red Cell Distribution Width 14.5 % (11.8-14.3); White Blood Cell 4.8 10^3/uL (4.4-10.8)
[2024-08-18 06:30] LABS: BUN/Creatinine Ratio 13.9 (10.0-20.0); Blood Urea Nitrogen 11 mg/dL (9-23); Glucose 94 mg/dL (74-106); Lipase 45 U/L (12-53)
[2024-08-18 06:33] LABS: Calcium 10.4 mg/dL (8.7-10.4)
[2024-08-18 08:08] LABS: Free Thyroxine Index 2.3 (1.2-4.9); Thyroxine (T4) 9.6 ug/dL (4.5-12.0)
[2024-08-18] MEDS ORDERED: SODIUM CHLORIDE LOCK 10 ML ONE (10:58)
[2024-08-18] MEDS ORDERED: fentaNYL CITRATE 100 MCG/2 ML VL ONE (10:59)
--- NOTE | 2024-08-18 12:51 | DVHPN2 ---
Progress Note - Dictate Date Seen: Aug 18, 2024 Medical Necessity Reason Pt with a Central, PICC or Fol: No Subjective Still complains of nonspecific abdominal discomfort but stable. Evaluated by GI and she was scheduled for EGD this afternoon. vital signs Vital Sign Date Time Temp Pulse Resp B/P (MAP) Pulse Ox O2 Delivery O2 Flow Rate FiO2 08/18/24 09:00 98.1 71 16 113/72 (86) 96 98.1 08/17/24 20:00 Room Air* 0 21 Total Intake and Output 08/17/24 08/17/24 08/18/24 15:00 23:00 07:00 Intake Total 650 ml 0 ml Balance 650 ml 0 ml medications Current Medications Medications Dose Ordered Sig/Alondra Route Start Time Stop Time Status Last Admin Dose Admin Docusate Sodium 100 mg BIDPRN PRN PO 08/16/24 00:15 Acetaminophen 650 mg Q6HP PRN PO 08/16/24 00:15 08/17/24 18:18 650 MG Ondansetron HCl 4 mg Q4HP PRN IV 08/16/24 00:15 08/17/24 22:54 4 MG Nitroglycerin 0.4 mg Q5MINP PRN SL 08/16/24 00:15 Morphine Sulfate 2 mg Q30M PRN IV 08/16/24 00:15 Acetaminophen/ Hydrocodone Bitart 1 tab Q4HPRN PRN PO 08/16/24 14:45 08/16/24 21:48 1 TAB Pantoprazole Sodium 40 mg BID IV 08/17/24 22:00 08/18/24 10:39 40 MG objective Comfortable in bed without distress. HEENT neck supple no JVD. Heart regular rate and rhythm S1-S2. Lungs without rales wheezes. Abdomen obese soft nontender positive bowel sounds. Extremities no edema. laboratory and microbiology Laboratory Tests 08/18/24 04:50 Test 08/18/24 04:50 Range/Units Serum Glucose 94 74-106 mg/dL Assessment/Plan Continue Protonix as she is on. Proceed with EGD today. Otherwise continue rest of supportive care and treatment and further clinical management per clinical course and recommendations from the GI. Discussed with the nurse regarding care plan. Problems(with codes): (1) GERD (gastroesophageal reflux disease) (2) Abdominal pain Dietary Evaluation Review Comments: 1) Advance diet as medically feasible 2) Continue current plan of care Expected Outcomes/Goals: Pt will meet 75% estimated needs Fu 2-3 days Plan discussed with: Other ARINA MARAVILLA MD Aug 18, 2024 12:51
--- NOTE | 2024-08-18 14:16 | ECG ---
[facility] Test Date: 2024-08-15 Test Time: 17:49:27 Pat Name: CARLOS JAMES Department: ER Room: [facility] Gender: F Environmental Research Project Manager: DONTRELL : 1990 Requested By: FOREST MCNEIL Order Number: [id number] Reading MD: Ramsey Robles Measurements Intervals [place] Rate: 126 P: 61 CT: 155 QRS: -34 QRSD: 85 T: 74 QT: 312 QTc: 452 Interpretive Statements Sinus tachycardia Consider right atrial enlargement Left axis deviation RSR' in V1 or V2, probably normal variant Borderline T abnormalities, anterior leads Baseline wander in lead(s) V5 Electronically Signed On 08-20-2024 16:37:02 PDT by Ramsey Robles Please click the below link to view image of tracing.
[2024-08-18] MEDS: LIDOCAINE VISCOUS 2% 15ML UD ONE (14:34)
[2024-08-18] MEDS: MIDAZOLAM HCL 5 MG/ML-1ML VIAL ONE (14:34)
[2024-08-18] MEDS: diphenhdrAMINE HCL 50 MG/1 ML VL ONE (14:34)
[2024-08-18] MEDS: MIDAZOLAM HCL 2MG/2ML 2ml VIAL (1mg/ml) ONE (14:37)
--- NOTE | 2024-08-18 14:54 | DVHOP2 ---
Operative Report DATE OF OPERATION: 08/18/24 PROCEDURE: Upper Endoscopy with biopsy. PREOPERATIVE INDICATION: The patient is a 33 -year-old female undergoing endoscopy for epigastric pain nausea POSTOPERATIVE DIAGNOSES: 1. 1 cm sliding-type hiatal hernia with slightly irregular squamocolumnar junction no significant erosive esophagitis 2. Minimal gastroduodenitis otherwise normal examination up to the 2nd and 3rd part of the duodenum PROCEDURE PERFORMED BY: Marlee Rodriguez GI NURSE: Tiarra SCOPE: Olympus videoendoscope. ASA CLASS: 2 PREOPERATIVE MEDICATIONS: Versed 6 mg, Fentanyl 0 mcg, Benadryl 50 mg I administered moderate sedation throughout this _8_ minutes procedure. An independent trained observer pushed medications at my direction, and monitored the patient's level of consciousness and physiological status throughout. PROCEDURE IN DETAIL: After obtaining an informed consent, the patient was placed on left lateral decubitus position. The patient was then sedated with the above medications. A bite block was placed between her teeth. The endoscope was then passed through the oropharynx, into the esophagus, and through the stomach and pylorus up to the second and third part of the duodenum. The endoscope was then withdrawn. The 2nd and 3rd part of the duodenum were normal and the duodenal bulb showed mild duodenitis The pre-pyloric area antrum and body showed minimal gastritis. On retroflexion the fundus and cardia were normal Duodenal and gastric biopsies were obtained. The endoscope was then withdrawn into the distal esophagus. Patient had a one cm sliding-type hiatal hernia with slightly irregular squamocolumnar junction no significant erosive esophagitis Some GE junction biopsies were obtained to rule out eosinophilia. The remaining distal and proximal esophagus and oropharynx were unremarkable The patient tolerated the procedure well without difficulty. COMPLICATIONS : None SPECIMENS: Duodenal biopsies Gastric biopsies GE junction biopsies DISPOSITION: Transfer back to the floor Stable PLAN: 1. Await for biopsy result 2. Will place pt on Protonix 40 mg bid 3. Carafate 1 g p.o. 4 times a day 4. Zofran as needed for nausea and vomiting 5. Patient of the counseled about discontinuing marijuana 6. Outpatient follow up with me in 4-6 weeks to review results and discuss further management MARLEE RODRIGUEZ MD Aug 18, 2024 14:54
[2024-08-18] MEDS: SUCRALFATE 1 GM/10 ML ORAL SUSP PO SCH (22:05)
[2024-08-19 01:00] VITALS: BP 120/75; PULSE 73; RESP 18; TEMP 97.9; O2SAT 94
[2024-08-19 05:00] VITALS: BP 92/60; PULSE 72; RESP 18; TEMP 97.6; O2SAT 95
[2024-08-19 08:00] VITALS: PULSE 68; PULSE 70; RESP 18
[2024-08-19 09:00] VITALS: BP 119/73; PULSE 83; RESP 17; TEMP 98; O2SAT 94
[2024-08-19] MEDS ORDERED: PANT40TA57 PO (09:53)
[2024-08-19] MEDS ORDERED: SUCR1SUS5 PO (09:53)
--- NOTE | 2024-08-19 09:54 | DVHDS2 ---
Discharge Summary Date of Admission Aug 16, 2024 at 00:15 Date of Discharge: Aug 19, 2024 Labs/Diagnostic Data: Laboratory Results Test 08/18/24 04:50 08/17/24 04:26 08/16/24 14:00 08/16/24 09:04 White Blood Count 4.8 10^3/uL (4.4-10.8) Red Blood Count 4.98 10^6/uL (4.0-5.20) Hemoglobin 15.0 g/dL (12.2-16.2) Hematocrit 42.7 % (36.0-46.0) Mean Corpuscular Volume 85.7 fL (80.0-100.0) Mean Corpuscular Hemoglobin 30.1 pg (28.0-32.0) Mean Corpuscular Hemoglobin Concent 35.1 g/dL (32.0-36.0) Red Cell Distribution Width 14.5 % (11.8-14.3) Platelet Count 195 10^3/uL (140-450) Mean Platelet Volume 8.1 fL (6.9-10.8) Neutrophils (%) (Auto) 42.9 % (37.0-80.0) Lymphocytes (%) (Auto) 44.1 % (10.0-50.0) Monocytes (%) (Auto) 8.9 % (0.0-12.0) Eosinophils (%) (Auto) 3.5 % (0.0-7.0) Basophils (%) (Auto) 0.6 % (0.0-2.0) Neutrophils # (Auto) 2.0 10 ^3/uL (1.6-8.6) Lymphocytes # (Auto) 2.1 10 ^3/uL (0.4-5.4) Monocytes # (Auto) 0.4 10 ^3/uL (0-1.3) Eosinophils # (Auto) 0.2 10 ^3/uL (0-0.8) Basophils # (Auto) 0 10 ^3/uL (0-0.2) Nucleated Red Blood Cells 0.1 % Prothrombin Time 10.9 sec (9.3-11.8) Prothrombin Time INR 1.03 (0.9-1.15) Activated Partial Thromboplast Time 20.2 SEC (24.5-34.5) Sodium Level 140 mmol/L (136-145) Potassium Level 3.7 mmol/L (3.5-5.1) Chloride Level 103 mmol/L (98-107) Carbon Dioxide Level 28 mmol/L (20-31) Anion Gap 9 (5-15) Blood Urea Nitrogen 11 mg/dL (9-23) Creatinine 0.79 mg/dL (0.550-1.02) Glomerular Filtration Rate Calc 103 mL/min (>90) BUN/Creatinine Ratio 13.9 (10.0-20.0) Serum Glucose 94 mg/dL (74-106) Calcium Level 10.4 mg/dL (8.7-10.4) Lipase 45 U/L (12-53) Beta HCG, Quantitative 1.4 mIU/mL (1.5-4.2) Differential Total Cells Counted 100.0 (100) Neutrophils % (Manual) 35 (37.0-80.0) Band Neutrophils % (Manual) 0 Lymphocytes % (Manual) 51 (10.0-50.0) Monocytes % (Manual) 10 (0-12) Eosinophils % (Manual) 4 (0-7) Basophils % (Manual) 0 (0.0-2.0) Metamyelocytes % (manual) 0 Myelocytes % (Manual) 0 Promyelocytes % (Manual) 0 Blast Cells % (Manual) 0 Reactive Lymphocytes 0 Platelet Estimate Adequate Red Blood Cell Morphology Normal Total Bilirubin 0.6 mg/dL (0.2-1.0) Aspartate Amino Transferase (AST) 20 U/L (13-40) Alanine Aminotransferase (ALT) 14 U/L (7-40) Alkaline Phosphatase 50 U/L (46-116) Total Protein 6.2 g/dL (5.7-8.2) Albumin 3.9 g/dL (3.2-4.8) Urine Color Light-yellow (Yellow) Urine Clarity Turbid (Clear) Urine pH 5.5 (5.0-9.0) Urine Specific [place] 1.011 (1.001-1.035) Urine Protein Negative (Negative) Urine Ketones Negative (Negative) Urine Blood Negative /uL (Negative) Urine Nitrite Negative (Negative) Urine Bilirubin Negative (Negative) Urine Urobilinogen Normal mg/dL (Negative) Urine Leukocyte Esterase Negative /uL (Negative) Urine RBC 1 /hpf (0 - 4) Urine Microscopic WBC 4 /HPF (0-5) Urine Squamous Epithelial Cells Mod /hpf (<5) Urine Bacteria Few /hpf (None Seen) Urine Glucose Normal mg/dL (Normal) Urine Opiates Screen Neg (NEGATIVE) Urine Fentanyl Screen Neg (NEGATIVE) Urine Barbiturates Screen Neg (NEGATIVE) Urine Phencyclidine Screen Neg (NEGATIVE) Urine Amphetamines Screen Neg (NEGATIVE) Urine Benzodiazepines Screen Neg (NEGATIVE) Urine Cocaine Screen Neg (NEGATIVE) Urine Cannabinoids Screen Neg (NEGATIVE) Thyroid Stimulating Hormone (TSH) 1.48 uIU/mL (0.55-4.78) Test 08/15/24 19:59 08/15/24 18:50 Troponin I High Sensitivity < 3 ng/L (</=34) Lactic Acid Level 1.8 mmol/L (0.4-2.0) Free Thyroxine Index 2.3 (1.2-4.9) Thyroxine (T4) 9.6 ug/dL (4.5-12.0) Triiodothyronine (T3) Uptake 24 % (24-39) Other Laboratory Tests 08/18/24 04:50 Brief Hx & Hospital Course: 33-year-old female who presents with complaints of epigastric abdominal pain, nausea, vomiting x1 day. Patient endorses subjective fever. Also endorses she is unable to tolerate oral intake. There are no complaints of shortness of breath, leg swelling, hematemesis, hematochezia, melena. On arrival to the emergency department patient was noted to be tachycardic with heart rates ranging from 130-160. Patient also endorses abnormal lump to the right side of the neck without confirmed diagnosis of thyroid disorders. At this time patient is admitted for further evaluation and treatment. She is admitted and evaluated by cattle knocker. Patient symptoms suggestive of gastritis/reflux disease. She had an EGD. Patient is recommended to continue proton pump inhibitor and Carafate. She is advised to follow up with the cattle knocker outpatient for EGD biopsy results and further management. Otherwise while in the hospital patient is feeling better. Her symptoms resolved. She was tolerating diet. Having had necessary workup and evaluations and feeling better it is felt she could be safely discharged home with continued outpatient treatment and follow up as mentioned. I have talked with the patient regarding her hospital diagnosis, treatment she received, discharge medications, discharge instructions and follow-up plan of care. She has verbalized understanding of these and agree with the discharge care plan. Consults/Reason for consult EXAM: Two-dimensional and M-mode echocardiogram with Doppler and color Doppler. Blood Pressure: 112/65 mmHg INDICATION Tachycardia RISK FACTORS Height: 5'4, Weight: 155 DIMENSIONS LVDd 4.1 (3.8-5.7cm) LA (2D) 3.2 (1.9-4.0cm) Aortic Root 3.0 (2.0- 3.7cm) LVDs 3.0 (2.5-4.0cm) LA (MM) (1.9-4.0cm) Aortic Cusp Exc 1.5 (1.5- 2.0cm) EF (%) 60.0 (55-70%) Rt. Atrium 3.1 (1.9-4.0cm) Asc. Aorta 2.4 cm IVSd 0.9 (0.7-1.1cm) RV (D) 3.4 (1.8-2.4cm) PWd 1.0 (0.7-1.1cm) Mitral Valve Mitral Mitral Stenosis E wave 0.83m/s MV Mean GR. mmHg A wave 0.64m/s MV Peak GR. mmHg E/A ratio 1.3 2D MVA cm2 DECEL Time 111ms PRESS 1/2 Time ms Aortic Valve Aortic Valve Aortic Stenosis V1 0.77m/s AO Mean GR. 5mmHg V2 1.39m/s AO Peak GR. 8mmHg LVOT Diameter 2.2 (1.8-2.4cm) Doppler CORNELIO 2.10cm2 Pulmonic Valve V2 0.81m/s Tricuspid Valve TR Velocity 2.18m/s RVSP 22mmHg Conclusion lvef 60% by visual estimate normal rv function normal atria no severe valve abnormalities noted normal pericardium SIGNED BY: AARON MILES MD SIGNED DATE/TIME: 08/16/24 1236 Operations or Procedures Operative Report DATE OF OPERATION: 08/18/24 PROCEDURE: Upper Endoscopy with biopsy. PREOPERATIVE INDICATION: The patient is a 33 -year-old female undergoing endoscopy for epigastric pain nausea POSTOPERATIVE DIAGNOSES: 1. 1 cm sliding-type hiatal hernia with slightly irregular squamocolumnar junction no significant erosive esophagitis 2. Minimal gastroduodenitis otherwise normal examination up to the 2nd and 3rd part of the duodenum PROCEDURE PERFORMED BY: Marlee Rodriguez GI NURSE: Tiarra SCOPE: Olympus videoendoscope. ASA CLASS: 2 PREOPERATIVE MEDICATIONS: Versed 6 mg, Fentanyl 0 mcg, Benadryl 50 mg I administered moderate sedation throughout this _8_ minutes procedure. An independent trained observer pushed medications at my direction, and monitored the patient's level of consciousness and physiological status throughout. PROCEDURE IN DETAIL: After obtaining an informed consent, the patient was placed on left lateral decubitus position. The patient was then sedated with the above medications. A bite block was placed between her teeth. The endoscope was then passed through the oropharynx, into the esophagus, and through the stomach and pylorus up to the second and third part of the duodenum. The endoscope was then withdrawn. The 2nd and 3rd part of the duodenum were normal and the duodenal bulb showed mild duodenitis The pre-pyloric area antrum and body showed minimal gastritis. On retroflexion the fundus and cardia were normal Duodenal and gastric biopsies were obtained. The endoscope was then withdrawn into the distal esophagus. Patient had a one cm sliding-type hiatal hernia with slightly irregular squamocolumnar junction no significant erosive esophagitis Some GE junction biopsies were obtained to rule out eosinophilia. The remaining distal and proximal esophagus and oropharynx were unremarkable The patient tolerated the procedure well without difficulty. COMPLICATIONS : None SPECIMENS: Duodenal biopsies Gastric biopsies GE junction biopsies DISPOSITION: Transfer back to the floor Stable PLAN: 1. Await for biopsy result 2. Will place pt on Protonix 40 mg bid 3. Carafate 1 g p.o. 4 times a day 4. Zofran as needed for nausea and vomiting 5. Patient of the counseled about discontinuing marijuana 6. Outpatient follow up with me in 4-6 weeks to review results and discuss further management MARLEE RODRIGUEZ MD Aug 18, 2024 14:54 Condition at Discharge: Stable Final Diagnosis/Problems List gastritis s/p EGD Discharge Disposition: Home Discharge Instruct/Medications Diet: Consistent carbohydrate, Cardiac 2g Na,low cholest Activity: No Restrictions, As Tolerated Follow Up/Referral: Dr.Neera Rodriguez GI doctor after 3 weeks for gastritis and egd results Medications: as prescribed New Medications: Pantoprazole Sodium Sesquihydr (Pantoprazole Sodium Dr) 40 Mg Tab 40 MG PO BID, #60 TAB Sucralfate (Carafate) 1 Gm/10 Ml Amy 10 ML PO QID, #1200 ML Discontinued Medications: Hydroxyzine Hcl (Hydroxyzine Hcl) 10 Mg Tab 5 MG PO PRN for 30 Days, MG Discharge Statement: "Patient was advised to return to the ER or call 911 if any headaches, dizziness, shortness of breath, chest pain, abdominal pain, bleeding, fevers, or worsening of medical condition. Patient was counseled about treatment plan, medications, possible side effects, patientverbalized understanding. All questions were answered to the best of my ability. This discharge took greater then 30 minutes in planning, reviewing documentation, counseling the patient, and discussing with other team members." ASSESSMENT ASSESSMENT Assessment gastritis s/p EGD ARINA MARAVILLA MD Aug 19, 2024 09:54
[2024-08-19] MEDS: PNEUMOCOCCAL VACC POLYS 25 MCG/0.5 ML VIAL IM ONE (12:00)
== END 2024-08-19 12:35 | disposition home or self-care (01) | DRG 241 ==
LOC: ER 17:47 → OVERFLOW 08-16 00:15 → TELE-WESTW 08-16 04:47
PROVIDERS: ADMIT Nurse Practitioner Family; ATTEND Nurse Practitioner Family
PROC: 0DB68ZX Excision of Stomach, Via Natural or Artificial Opening Endoscopic, Diagnostic (ICD-10-PCS; 2024-08-18)
PROC: 0DB48ZX Excision of Esophagogastric Junction, Via Natural or Artificial Opening Endoscopic, Diagnostic (ICD-10-PCS; 2024-08-18)
PROC: 0DB98ZX Excision of Duodenum, Via Natural or Artificial Opening Endoscopic, Diagnostic (ICD-10-PCS; principal; 2024-08-18 14:32)
DX: K29.70 Gastritis, unspecified, without bleeding (principal); K76.0 Fatty (change of) liver, not elsewhere classified; E86.0 Dehydration; K21.9 Gastro-esophageal reflux disease without esophagitis; F41.9 Anxiety disorder, unspecified; R22.1 Localized swelling, mass and lump, neck; J45.909 Unspecified asthma, uncomplicated; K29.80 Duodenitis without bleeding; K44.9 Diaphragmatic hernia without obstruction or gangrene; Z80.49 Family history of malignant neoplasm of other genital organs; Z88.0 Allergy status to penicillin; Z88.1 Allergy status to other antibiotic agents; Z88.6 Allergy status to analgesic agent; R16.1 Splenomegaly, not elsewhere classified
CPT/HCPCS: 36415; 43239; 74176; 76536; 76705; 80048; 80053; 80307; 81001; 83605; 83690; 84443; 84484; 84702; 85007; 85025; 85027; 85610; 85730; 86850; 86900; 86901; 87081; 93005; 93306; 96361; 96372; 96374; 96375; G0378; J2250; J2405; J2470

== ENCOUNTER 2024-10-23 22:29 | Emergency (ER) | payer MEDICAID ==
[~2024-10-23] VITALS: Ht 167.6 cm; Wt 72.7 kg
[~2024-10-23 22:29] MED LIST changes: -AZITTAB PO; -NITR-87 PO; +PANT40TA57 PO; -PREN-96 PO; +SUCR1SUS5 PO
[2024-10-23 23:08] LABS: Basophils # (auto) 0 10 ^3/uL (0-0.2); Basophils % (auto) 0.3 % (0.0-2.0); Eosinophils # (auto) 0.1 10 ^3/uL (0-0.8); Eosinophils % (auto) 1.2 % (0.0-7.0); Hematocrit 42.6 % (36.0-46.0); Hemoglobin 14.2 g/dL (12.2-16.2); Lymphocytes # (auto) 2.1 10 ^3/uL (0.4-5.4); Lymphocytes % (auto) 23.2 % (10.0-50.0); Mean Corpuscular Hemoglobin 29.1 pg (28.0-32.0); Mean Corpuscular Hgb Conc. 33.3 g/dL (32.0-36.0); Mean Corpuscular Volume 87.4 fL (80.0-100.0); Monocytes # (auto) 0.4 10 ^3/uL (0-1.3); Monocytes % (auto) 4.8 % (0.0-12.0); Neutrophils # (auto) 6.4 10 ^3/uL (1.6-8.6); Neutrophils % (auto) 70.5 % (37.0-80.0); Nucleated Red Blood Cells % 0.1 %; Platelet Count (auto) 236 10^3/uL (140-450); Red Blood Cells 4.87 10^6/uL (4.0-5.20); Red Cell Distribution Width 14.2 % (11.8-14.3); White Blood Cell 9.1 10^3/uL (4.4-10.8)
[2024-10-23 23:23] LABS: Chloride 104 mmol/L (98-107); Potassium 3.7 mmol/L (3.5-5.1); Sodium 140 mmol/L (136-145)
[2024-10-23 23:24] LABS: Anion Gap 9 (5-15); Carbon Dioxide 27 mmol/L (20-31)
[2024-10-23 23:25] LABS: Calcium 9.4 mg/dL (8.7-10.4)
[2024-10-23 23:29] LABS: Glucose 98 mg/dL (74-106)
[2024-10-23 23:30] LABS: BUN/Creatinine Ratio 17.3 (10.0-20.0); Blood Urea Nitrogen 14 mg/dL (9-23); Lipase 40 U/L (12-53)
--- NOTE | 2024-10-23 23:49 | DVH ---
Exam: CT CT AB PEL WO CON-NO ORAL OR IV History: Diffuse periumbilical and epigastric pain Comparison Study: CT CT AB PEL WO CON-NO ORAL OR IV on DOS: 08/15/24 Technique: Multidetector spiral CT of the abdomen was performed from lung bases to pubic symphysis. Imaging was performed without IV contrast. Axial, coronal and sagittal multiplanar reformats were ob tained from the axial data set by the technologist. Radiation Dose : 1. Abdomen/Pelvis: CTDIvol 6.4 mGy, DLP 393 mGy*cm. Findings: Evaluation of solid organs is limited due to lack of intravenous contrast use. Lung Bases: No acute or significant lung base finding. Normal heart size. No pleural or pericardial effusion. Liver: The liver is normal in size. No focal lesions. Gallbladder and Biliary Tree: Unremarkable Spleen: Unremarkable Pancreas: The pancreas is grossly normal in appearance. Adrenal Glands: Unremarkable Kidneys: Kidneys are grossly normal without calculi or hydronephrosis. Bladder: Grossly unremarkable for degree of distention. Bowel: The stomach is grossly normal in appearance. Small bowel and colon are normal in caliber and d istribution. The appendix is not visualized; however, no secondary findings of acute appendicitis id entified. Moderate to large colonic stool burden. Ascites: Absent Lymphadenopathy: No mesenteric, retroperitoneal or periportal lymphadenopathy. Abdominal Wall and Mesentery: Unremarkable. Vasculature: The visualized abdominal aorta is normal in size and caliber. Evaluation of abdominal a nd pelvic vessels is limited due to lack of intravenous contrast. Pelvic Organs: Unremarkable Musculoskeletal: No aggressive focal bony lesions, acute fractures or dislocation. IMPRESSION: 1. No acute abdominal or pelvic findings. 2. Moderate to large colonic stool burden. Radiation optimization: All CT scans at this facility use at least one of these dose optimization lucy hniques: automated exposure control mA and/or kV adjustment per patient size (includes targeted exam s where dose is matched to clinical indication) or iterative reconstruction.
--- NOTE | 2024-10-24 01:43 | ED.PDOC ---
GI ASSESSMENT HPI Comments This patient is a 33-year-old female who arrives the ED today via EMS for evaluation of upper abdominal pain for the past 2 hours with urinary discomfort. Patient through states the symptoms came on has been relatively unrelenting. Patient states intermittent nausea without fever vomiting. Vital signs were stable at arrival. Chief Complaint: Abdominal Pain Time Seen by MD: 22:31 Primary Care Provider: GILMER Reviewed Notes: Nurses Notes, Area Counselor Notes Allergies: Coded Allergies: Amoxicillin (Verified Allergy, Severe, 07/03/18) Cephalexin (Verified Allergy, Unknown, 03/25/24) Furosemide (Verified Allergy, Unknown, 12/30/20) Ibuprofen (Verified Allergy, Unknown, 03/25/24) Latex (Verified Allergy, Unknown, 08/15/24) Penicillins (Verified Allergy, Unknown, 03/25/24) Home Meds Active Scripts Sucralfate (Carafate) 1 Gm/10 Ml Amy, 10 ML PO QID, #1200 ML Prov:ARINA MARAVILLA MD 08/19/24 Pantoprazole Sodium Sesquihydr (Pantoprazole Sodium Dr) 40 Mg Tab, 40 MG PO BID, #60 TAB Prov:ARINA MARAVILLA MD 08/19/24 Information Source: Patient, Emergency Med Personnel Mode of Arrival: EMS Timing: Hours Duration: Since onset Prehospital treatment: None Quality: Aching, Cramping Vomitus: None Severity: Moderate Recent: None Recent Hx of: None Pain Location: Diffuse, Epigastric Associated sign and symptoms: Nausea, Abdominal Pain Past Medical History PAST MEDICAL HISTORY: Anxiety, Asthma, Thyroid Surgical History: Unknown UTILITY ACCOUNTS DIRECTOR History: Denies all UTILITY ACCOUNTS DIRECTOR Hx Family History Family History: Reviewed,noncontributory to illness, Unknown Social History Smoker: Non-Smoker Alcohol: Denies ETOH Use Drugs: Denies Drug Use Lives In: Home Constitutional: denies: chills, diaphoresis, fatigue, fever, malaise, sweats, weakness, others EENTM: denies: blurred vision, double vision, ear bleeding, ear discharge, ear drainage, ear pain, ear ringing, eye pain, eye redness, hearing loss, mouth pain, mouth swelling, nasal discharge, nose bleeding, nose congestion, nose pain, photophobia, tearing, throat pain, throat swelling, voice changes, others Respiratory: denies: cough, hemoptysis, orthopnea, SOB at rest, shortness of breath, SOB with excertion, stridor, wheezing, others Cardiovascular: denies: chest pain, dizzy spells, diaphoresis, Dyspnea on exertion, edema, irregular heart beat, left arm pain, lightheadedness, palpitations, PND, syncope, others Gastrointestinal: reports: abdominal pain, nausea; denies: abdomen distended, blood streaked bowels, constipated, diarrhea, dysphagia, difficulty swallowing, hematemesis, melena, poor appetite, poor fluid intake, rectal bleeding, rectal pain, vomiting, others Genitourinary: denies: abnormal vagina bleeding, burning, dyspareunia, dysuria, flank pain, frequency, hematuria, incontinence, pain, , vagina discharge, urgency, others Neurological: denies: dizziness, fainting, headache, left sided numbness, left sided weakness, numbness, paresthesia, pre-existing deficit, right sided numbness, right sided weakness, seizure, speech problems, tingling, tremors, weakness, others Musculoskeletal: denies: back pain, gout, joint pain, joint swelling, muscle pain, muscle stiffness, neck pain, others Integumetry: denies: bruises, change in color, change in hair/nails, dryness, laceration, lesions, lumps, rash, wounds, others Allergic/Immunocompromised: denies: Difficulty Healing, Frequent Infections, Hives, Itching, others Hematologic/Lymphatic: denies: anemia, blood clots, easy bleeding, easy bruising, swollen glands, others Endocrine: denies: excessive hunger, excessive sweating, excessive thirst, excessive urination, flushing, intolerance to cold, intolerance to heat, unexplained weight gain, unexplained weight loss, others Psychiatric: denies: anxiety, bipolar disorder, depression, hopeless, panic disorder, schizophrenia, sleepless, suicidal, others Physical Exam General Appearance: Moderate Distress (Due to epigastric abdominal pain.), Normal HEENT: Normal ENT Inspection, Pharynx Normal, TMs Normal Neck: Full Range of Motion, Non-Tender, Normal, Normal Inspection Respiratory: Chest Non-Tender, Lungs Clear, No Accessory Muscle Use, No Respiratory Distress, Normal Breath Sounds Cardiovascular: No Edema, No JVD, No Murmur, No Gallop, Normal Peripheral Pulses, Regular Rate/Rhythm Breast Exam: Deferred Gastrointestinal: Other ( Diffuse bilateral epigastric tenderness to palpation throughout. Nonspecific pain concerns. No pulsatile masses. Abdomen was reasonably soft.) Genitalia: Deferred Pelvic: Deferred Rectal: Deferred Extremities: No calf tenderness, Normal capillary refill, Normal inspection, Normal range of motion, Non-tender, No pedal edema Neurologic: Alert, No Motor Deficits, Normal Affect, Normal Mood, No Sensory Deficits Cerebellar Function: Normal Reflexes: Normal Skin: Dry, Normal Color, Warm Lymphatic: No Adenopathy Was a procedure done? Was a procedure done?: No GI differential Dx Differential Diagnosis: Appendicitis, Cholangitis, Cholecystitis, Constipation, Diverticular disease, Gastritis/PUD, Gastroenteritis, Pancreatitis, UTI X-Ray, Labs, Meds, VS Vital Signs Date Time Temp Pulse Resp B/P (MAP) Pulse Ox O2 Delivery O2 Flow Rate FiO2 10/24/24 02:15 82 16 138/76 10/24/24 01:23 98.7 85 16 133/83 (100) 98 98.7 10/23/24 22:46 98.1 87 18 140/85 (103) 97 98.1 Lab Test 10/23/24 23:59 10/23/24 22:48 Range/Units Urine Color Pending Urine Clarity Pending Urine pH Pending Urine Specific [place] Pending Urine Protein Pending Urine Ketones Pending Urine Blood Pending Urine Nitrite Pending Urine Bilirubin Pending Urine Urobilinogen Pending Urine Leukocyte Esterase Pending Urine RBC Pending Urine Microscopic WBC Pending Urine Squamous Epithelial Cells Pending Urine Bacteria Pending Urine Glucose Pending White Blood Count 9.1 4.4-10.8 10^3/uL Red Blood Count 4.87 4.0-5.20 10^6/uL Hemoglobin 14.2 12.2-16.2 g/dL Hematocrit 42.6 36.0-46.0 % Mean Corpuscular Volume 87.4 80.0-100.0 fL Mean Corpuscular Hemoglobin 29.1 28.0-32.0 pg Mean Corpuscular Hemoglobin Concent 33.3 32.0-36.0 g/dL Red Cell Distribution Width 14.2 11.8-14.3 % Platelet Count 236 140-450 10^3/uL Mean Platelet Volume 8.3 6.9-10.8 fL Neutrophils (%) (Auto) 70.5 37.0-80.0 % Lymphocytes (%) (Auto) 23.2 10.0-50.0 % Monocytes (%) (Auto) 4.8 0.0-12.0 % Eosinophils (%) (Auto) 1.2 0.0-7.0 % Basophils (%) (Auto) 0.3 0.0-2.0 % Neutrophils # (Auto) 6.4 1.6-8.6 10 ^3/uL Lymphocytes # (Auto) 2.1 0.4-5.4 10 ^3/uL Monocytes # (Auto) 0.4 0-1.3 10 ^3/uL Eosinophils # (Auto) 0.1 0-0.8 10 ^3/uL Basophils # (Auto) 0 0-0.2 10 ^3/uL Nucleated Red Blood Cells 0.1 % Sodium Level 140 136-145 mmol/L Potassium Level 3.7 3.5-5.1 mmol/L Chloride Level 104 98-107 mmol/L Carbon Dioxide Level 27 20-31 mmol/L Anion Gap 9 5-15 Blood Urea Nitrogen 14 9-23 mg/dL Creatinine 0.81 0.550-1.02 mg/dL Glomerular Filtration Rate Calc 99 >90 mL/min BUN/Creatinine Ratio 17.3 10.0-20.0 Serum Glucose 98 74-106 mg/dL Calcium Level 9.4 8.7-10.4 mg/dL B-Type Natriuretic Peptide 4.95 0-100 pg/mL Lipase 40 12-53 U/L Current Medications Medications (Trade) Dose Ordered Sig/Alondra Route Start Time Stop Time Status Last Admin Hydromorphone HCl (Dilaudid Injection) 0.5 mg ONCE ONCE IM 10/23/24 22:45 10/23/24 22:46 DC 10/24/24 02:15 Ondansetron HCl (Zofran Po) 4 mg ONCE ONCE PO 10/23/24 22:45 10/23/24 22:46 DC 10/24/24 02:14 Lactulose 30 ml ONCE ONCE PO 10/24/24 01:45 10/24/24 01:48 DC 10/24/24 02:14 X-Ray, Labs, Meds, VS Comment Pulses from the ED were evaluated by me personally. Serum laboratories were unremarkable for any systemic concerns. Urinalysis was unremarkable for any urinary tract infection.CT of the abdomen and pelvis was unremarkable for any significant organ concerns. Notable was a moderate stool burden throughout. Patient appears to be suffering from constipation. Advised patient utilize medication as needed for symptomatic relief as well as good hydration and healthy nutrition for the next few weeks. Time of 1ST Reevaluation: 02:25 Reevaluation 1ST: Improved Consultation: PCP Patient Education/Counseling: Diagnosis, Treatment Family Education/Counseling: Diagnosis, Treatment Departure 1 Departure Time of Disposition: :25 Impression: Primary Impression: Abdominal pain Additional Impression: Constipation Disposition: HOME / SELF CARE / HOMELESS Condition: Stable Additional Instructions: Advised patient utilize medication as needed until a healthy bowel pattern is establish. Additional medication as needed. Good hydration and healthy nutrition for the next few weeks. e-Prescriptions Acetaminophen (Acetaminophen) 500 Mg Tab 500 MG PO Q4HP PRN, #20 TAB Prov: ESPERANZA MUÑIZ 10/24/24 Ondansetron Odt 4MG Tab (ZOFRAN PO) 4 Mg Tb 4 MG PO Q6HP PRN, #15 TAB ODT TAB-DISSOLVE IN MOUTH, THEN SWALLOW Prov: ESPERANZA MUÑIZ 10/24/24 Lactulose (Lactulose) 10 Gm/15 Ml [place] 10 GM PO BIDP PRN, #150 ML Prov: ESPERANZA MUÑIZ 10/24/24 Discharged With: Self, Friend Critical Care Note Critical Care Time?: No Stability Stability form required: No Heart Score Heart Score: Heart Score Response (Comments) Value History N/A 0 EKG N/A 0 Age N/A 0 Risk Factors N/A 0 Troponin N/A 0 Total 0 ESPERANZA MUÑIZ October 24, 2024 01:43
[2024-10-24 01:48] LABS: Urine Bacteria None Seen /hpf (None Seen)
[2024-10-24] MEDS: LACTULOSE 20Gm/30ML SOLN PO ONE (02:14)
[2024-10-24] MEDS: ONDANSETRON ODT 4 MG TAB PO ONE (02:14)
[2024-10-24 02:15] LABS: Urine Blood 2+ /uL (Negative); Urine Clarity Clear (Clear); Urine Color Light-Yellow (Yellow); Urine Protein, UAD Negative (Negative); Urine Specific Gravity 1.016 (1.001-1.035); Urine Squamous Epithelial Cell FEW /hpf (<5); Urine Urobilinogen Normal (Negative); Urine WBC 1 /HPF (0-5); Urine pH 7.5 (5.0-9.0)
[2024-10-24] MEDS: HYDROmorphone HCL 2 MG/ML VL/or syr IM ONE (02:15)
[2024-10-24 02:22] VITALS: PULSE 88; RESP 18; O2SAT 98
[2024-10-24] MEDS ORDERED: ZOFR4T PO (02:27)
[2024-10-24] MEDS ORDERED: LACT10SO3 PO (02:27)
[2024-10-24] MEDS ORDERED: ACET500T58 PO (02:27)
[2024-10-24 02:45] VITALS: BP 132/78; PULSE 83; RESP 16; TEMP 98.3; O2SAT 95
== END 2024-10-24 02:46 | disposition home or self-care (01) ==
LOC: ER 22:29 → EDBD 22:29 → ER 10-24 02:46
DX: K59.00 Constipation, unspecified (principal); E03.9 Hypothyroidism, unspecified; F41.9 Anxiety disorder, unspecified; J45.909 Unspecified asthma, uncomplicated; R06.02 Shortness of breath; Z79.899 Other long term (current) drug therapy; Z88.0 Allergy status to penicillin; Z88.1 Allergy status to other antibiotic agents; Z88.6 Allergy status to analgesic agent; Z88.8 Allergy status to other drugs, medicaments and biological substances
CPT/HCPCS: 36415; 74176; 80048; 81001; 83690; 83880; 85025; 96372; 99285; J1171; Q0162

== ENCOUNTER 2025-06-07 09:35 | Emergency (ER) | payer MEDICAID ==
[~2025-06-07] VITALS: Ht 162.6 cm; Wt 75.7 kg
[~2025-06-07 09:35] MED LIST changes: +ACET500T58 PO; +LACT10SO3 PO; +ZOFR4T PO
[2025-06-07 10:22] VITALS: BP 147/90; PULSE 93; RESP 16; TEMP 98.3; O2SAT 97
[2025-06-07] MEDS ORDERED: ACET1CAP14 PO (10:38)
[2025-06-07] MEDS ORDERED: CLIN1CAP70 PO (10:38)
[2025-06-07] MEDS ORDERED: PROM1SOL4 PO (10:38)
--- NOTE | 2025-06-07 10:38 | ED.PDOC ---
History of Present Illness HPI Comments 34-year-old female patient presents to clinic with a cough for 2 days, congestion was in a bug bite to the left wrist x2 days. Patient is 27 weeks . Patient states that she is not falling up with an OBGYN. Patient has not taken anything for the cough or fever. Patient states that her temperature was 101 at home yesterday. Patient also has complaints regarding by toe left wrist. Patient states that it did drain pus yesterday. Bug bite is flat, no fluctuation Chief Complaint: Cough Time Seen by MD: 09:48 Primary Care Provider: GILMER Reviewed Notes: Nurses Notes, Medications, Allergies Allergies: Coded Allergies: Amoxicillin (Verified Allergy, Severe, 07/03/18) Cephalexin (Verified Allergy, Unknown, 03/25/24) Furosemide (Verified Allergy, Unknown, 12/30/20) Ibuprofen (Verified Allergy, Unknown, 03/25/24) Latex (Verified Allergy, Unknown, 08/15/24) Penicillins (Verified Allergy, Unknown, 03/25/24) Home Meds Active Scripts Clindamycin Hcl (Clindamycin Hcl) 300 Mg Cap, 1 CAP PO TID for 7 Days, #21 CAP 0 Refills Prov:[facility]Calin[facility]UD [facility] 06/07/25 Acetaminophen (Tylenol) 325 Mg Cap, 650 MG PO Q6HP PRN for 10 Days, #80 CAP 0 Refills Prov:[facility]UD [facility] 06/07/25 Promethazine-Dm (Promethazine Dm 6.25-15 mg/5Ml) 1 Khalida Khalida, 5 ML PO Q6HP PRN for 10 Days, #200 ML 0 Refills Prov:[facility] 06/07/25 Acetaminophen (Acetaminophen) 500 Mg Tab, 500 MG PO Q4HP PRN, #20 TAB Prov:ESPERANZA MUÑIZ PAC 10/24/24 Ondansetron Odt 4MG Tab (ZOFRAN PO) 4 Mg Tb, 4 MG PO Q6HP PRN, #15 TAB ODT TAB-DISSOLVE IN MOUTH, THEN SWALLOW Prov:ESPERANZA MUÑIZ PAC 10/24/24 Lactulose (Lactulose) 10 Gm/15 Ml Khalida, 10 GM PO BIDP PRN, #150 ML Prov:ESPERANZA MUÑIZ PAC 10/24/24 Sucralfate (Carafate) 1 Gm/10 Ml Amy, 10 ML PO QID, #1200 ML Prov:ARINA MARAVILLA MD 08/19/24 Pantoprazole Sodium Sesquihydr (Pantoprazole Sodium Dr) 40 Mg Tab, 40 MG PO BID, #60 TAB Prov:ARINA MARAVILLA MD 08/19/24 Information Source: Patient Mode of Arrival: Ambulatory Severity: Mild Timing: Days Duration: Days Past Medical History PAST MEDICAL HISTORY: Anxiety, Asthma, Thyroid Surgical History: Unknown INTEGRATION SPECIALIST History: Denies all INTEGRATION SPECIALIST Hx Family History Family History: Reviewed,noncontributory to illness, Unknown Social History Smoker: Non-Smoker Alcohol: Denies ETOH Use Drugs: Denies Drug Use Lives In: Home Constitutional: reports: fever EENTM: denies: blurred vision, double vision, ear bleeding, ear discharge, ear drainage, ear pain, ear ringing, eye pain, eye redness, hearing loss, mouth pain, mouth swelling, nasal discharge, nose bleeding, nose congestion, nose pain, photophobia, tearing, throat pain, throat swelling, voice changes, others Respiratory: reports: cough Cardiovascular: denies: chest pain, dizzy spells, diaphoresis, Dyspnea on exertion, edema, irregular heart beat, left arm pain, lightheadedness, palpitations, PND, syncope, others Gastrointestinal: denies: abdomen distended, abdominal pain, blood streaked bowels, constipated, diarrhea, dysphagia, difficulty swallowing, hematemesis, m paradise, nausea, poor appetite, poor fluid intake, rectal bleeding, rectal pain, vomiting, others Genitourinary: denies: abnormal vagina bleeding, burning, dyspareunia, dysuria, flank pain, frequency, hematuria, incontinence, pain, , vagina discharge, urgency, others Neurological: denies: dizziness, fainting, headache, left sided numbness, left sided weakness, numbness, paresthesia, pre-existing deficit, right sided numbness, right sided weakness, seizure, speech problems, tingling, tremors, weakness, others Musculoskeletal: denies: back pain, gout, joint pain, joint swelling, muscle pain, muscle stiffness, neck pain, others Integumetry: reports: others (Bug bite to the inner portion of the left wrist) Allergic/Immunocompromised: denies: Difficulty Healing, Frequent Infections, Hives, Itching, others Hematologic/Lymphatic: denies: anemia, blood clots, easy bleeding, easy bruising, swollen glands, others Endocrine: denies: excessive hunger, excessive sweating, excessive thirst, excessive urination, flushing, intolerance to cold, intolerance to heat, unexplained weight gain, unexplained weight loss, others Psychiatric: denies: anxiety, bipolar disorder, depression, hopeless, panic disorder, schizophrenia, sleepless, suicidal, others All Other Systems: Reviewed and Negative Physical Exam General Appearance: No Apparent Distress, Normal HEENT: Normal ENT Inspection, Pharynx Normal, TMs Normal Neck: Full Range of Motion, Non-Tender, Normal, Normal Inspection Respiratory: Chest Non-Tender, Lungs Clear, No Accessory Muscle Use, No Respiratory Distress, Normal Breath Sounds, Rhonchi (audible with cough) Cardiovascular: No Edema, No JVD, No Murmur, No Gallop, Normal Peripheral Puls es, Regular Rate/Rhythm Breast Exam: Deferred Gastrointestinal: No Organomegaly, Non Tender, No Pulsatile Mass, Normal Bowel Sounds, Soft Genitalia: Deferred Pelvic: Deferred Rectal: Deferred Extremities: No calf tenderness, Normal capillary refill, Normal inspection, Normal range of motion, Non-tender, No pedal edema Musculoskeletal : Apperance: Normal Neurologic: Alert, office workforce planner II-XII nml as Tested, No Motor Deficits, Normal Affect, Normal Mood, No Sensory Deficits Cerebellar Function: Normal Reflexes: Normal Skin: Dry, Normal Color, Warm, Other (Patient has a bug bite to the left inner wrist with a small amount of erythema, sub cm in diameter, no fluctuation, no drainage) Lymphatic: No Adenopathy Was a procedure done? Was a procedure done?: No Differential Dx Considerations may include: Cellulitis, pneumonia, bronchitis, upper respiratory infection, pharyngitis X-Ray, Labs, Meds, VS Vital Signs Date Time Temp Pulse Resp B/P (MAP) Pulse Ox O2 Delivery O2 Flow Rate FiO2 06/07/25 10:22 98.3 93 16 147/90 (109) 97 98.3 06/07/25 10:22 93 16 97 Room Air 06/07/25 09:36 98.3 93 16 147/90 97 98.3 X-Ray, Labs, Meds, VS Comment On re-evaluation patient has symptomatic improvement. Patient is stable for discharge at this time. All test results and diagnostic imaging have been interpreted. All diagnostic findings, discharge care, and education instruction provided to the patient. Follow-up with PCP in 2-3 days Patient advised to obtain a referral from her PCP for an OBGYN to follow up on Patient verbalized understanding, discharge instructions and agrees to treatment plan Vital signs are stable Patient is ambulatory Patient advised of which symptoms necessitate a return visit to the emergency room. Patient to return emergency room for any new worsening symptoms. Patient is aware that the purpose of this visit is for an acute medical emergency requiring emergent stabilization. Chronic conditions, including malignancies have not been ruled out. Patient is instructed to follow up with PCP as directed for continued care and workup. If unable to arrange follow up, patient is to return to the emergency room for reassessment. Patient was given verbal and written discharge instructions and acknowledges understanding Time of 1ST Reevaluation: 10:35 Reevaluation 1ST: Improved Patient Education/Counseling: Diagnosis, Treatment, Prognosis Family Education/Counseling: No Family Present SEPSIS Sepsis Screen Date sepsis recognized/suspect: Jun 07, 2025 Time Sepsis recognized/suspect: 935 Recent Procedure: No On Antibiotic Therapy: No Respiratory Rate >20: No Heart Rate >90: No Temp<36 C (96.8 F) or >38.3 C: No SBP <90 or MAP <65 mmHG: No New Acute Mental Status Change: No Is the patient on CPAP, BIPAP,: No Vital Signs Date Time Temp Pulse Resp B/P (MAP) Pulse Ox O2 Delivery O2 Flow Rate FiO2 06/07/25 10:22 98.3 93 16 147/90 (109) 97 98.3 06/07/25 10:22 93 16 97 Room Air 06/07/25 09:36 98.3 93 16 147/90 97 98.3 Departure 1 Departure Time of Disposition: 10:39 Impression: Primary Impression: Cellulitis Qualified Codes: L03.114 - Cellulitis of left upper limb Additional Impression: Upper respiratory infection, viral Disposition: 01 HOME / SELF CARE / HOMELESS Condition: Fair e-Prescriptions Clindamycin Hcl (Clindamycin Hcl) 300 Mg Cap 1 CAP PO TID for 7 Days, #21 CAP 0 Refills Prov: BARBE,MOHAMUD [employer] 06/07/25 Acetaminophen (Tylenol) 325 Mg Cap 650 MG PO Q6HP PRN for 10 Days, #80 CAP 0 Refills Prov: BARBE,[facility] 06/07/25 Promethazine-Dm (Promethazine Dm 6.25-15 mg/5Ml) 1 Khalida Khalida 5 ML PO Q6HP PRN for 10 Days, #200 ML 0 Refills Prov: MOHAMUD R[facility]RIGUEZ [facility] 06/07/25 Discharged With: Self Critical Care Note Critical Care Time?: No Stability Stability form required: No Heart Score Heart Score: Heart Score Response (Comments) Value History N/A 0 EKG N/A 0 Age N/A 0 Risk Factors N/A 0 Troponin N/A 0 Total 0 MOHAMUD R[facility]IGUEZ [facility] Jun 07, 2025 10:38
== END 2025-06-07 10:57 | disposition home or self-care (01) ==
LOC: ER 09:35
DX: O99.712 Diseases of the skin and subcutaneous tissue complicating pregnancy, second trimester (principal); O99.512 Diseases of the respiratory system complicating pregnancy, second trimester; J45.909 Unspecified asthma, uncomplicated; F41.9 Anxiety disorder, unspecified; Z79.899 Other long term (current) drug therapy; Z91.040 Latex allergy status; Z88.8 Allergy status to other drugs, medicaments and biological substances; Z88.6 Allergy status to analgesic agent; Z88.1 Allergy status to other antibiotic agents; Z88.0 Allergy status to penicillin; Z3A.27 27 weeks gestation of pregnancy